=== PATIENT | female | born 1960 | race Caucasian/White ===

== ENCOUNTER 2018-12-11 10:01 | Inpatient (IN) ==
[2018-12-11 11:03] LABS: Basophils # (Auto) 0 K/mcL (0.0-0.3); Basophils % (Auto) 0.2 % (0.0-2.0); Eosinophils # (Auto) 0 K/mcL (0.0-0.7); Eosinophils % (Auto) 0.2 % (0.0-7.0); Granulocytes % (Auto) 83.8 % (38.0-78.0); Hematocrit 40.3 % (36.0-48.0); Hemoglobin 13.3 g/dL (12.0-15.0); Lymphocytes # (Auto) 1.6 K/mcL (1.5-4.8); Lymphocytes % (Auto) 11.7 % (15.5-49.0); Mean Cell Volume 83.8 fL (80.0-100.0); Mean Platelet Volume 8.3 fL (7.4-10.4); Monocytes # (Auto) 0.5 K/mcL (0.1-0.9); Monocytes % (Auto) 4.1 % (1.0-12.0); Platelet Count 146 K/mcL (140-440); RBC 4.81 M/mcL (4.00-5.20); Red Cell Distribution Width 17.6 % (11.5-14.5); WBC 13.3 K/mcL (4.5-11.0)
[2018-12-11 11:12] LABS: Prothrombin Time 13.4 sec (11.9-14.5)
[2018-12-11 11:23] LABS: ALT/SGPT 13 U/l (0-40); AST/SGOT 13 U/l (0-37); Albumin 3.8 gm/dL (3.2-5.2); Albumin/Globulin Ratio 0.8 (1.0-2.3); Alkaline Phosphatase 85 U/L (39-117); Blood Urea Nitrogen 22 mg/dl (6-20); C-Reactive Protein 28.7 mg/dl (0.0-0.8); Calcium 9.3 mg/dl (8.6-10.4); Carbon Dioxide 23 mmol/L (22-30); Chloride 88 mmol/L (96-108); Globulin 4.7 gm/dL (2.2-3.7); Glomerular Filtration Rate 49; Glucose 230 mg/dL (70-105); Sodium 129 mmol/L (133-145)
[2018-12-11] MEDS ORDERED: VANCOMYCIN 1,000 MG in 0.9 % SODIUM CHLORIDE 250 ML IV ONE (11:37)
--- NOTE | 2018-12-11 11:42 | Emergency Department Note ---
ED Note Addendum Note Addendum: I discussed this case with the mid-level provider heard the report from Dr. garcia today and examined the patient myself. I agree this patient should be admitted to the hospital for cellulitis.
[2018-12-11 11:47] LABS: Erythrocyte Sedimentation Rate 99 mm/hr (0-20)
--- NOTE | 2018-12-11 11:58 | Emergency Department Note ---
Skin/Abscess/FB HPI - General Chief complaint: Skin/Abscess/Foreign Body Stated complaint: RLE Cellulitis, Right Great Toe Pain Time Seen by Provider: 12/11/18 10:07 Source: patient Mode of arrival: wheelchair Limitations: no limitations - History of Present Illness HPI Narrative: 58-year-old female presents for recheck of cellulitis to the right lower extremity. She was seen here about 48 hours ago. She had an infected callus on her foot, she was started on Augmentin and a wound care referral was done. She saw wound care this morning and was worse. Dr. Singh wanted her sent back over to the ER for further evaluation. Patient reports fever a couple of days ago but none recently. She did have one episode of vomiting yesterday. Positive decreased appetite as she has not been eating or drinking much at all. States the redness and swelling to her right foot and lower leg seems to be getting worse, not better. States she has been taking her antibiotics as prescribed. Associated symptoms: Reports: fever, nausea, vomiting Treatments prior to arrival: antibiotic - Related Data Home Medications Medication Instructions Recorded Confirmed Hydrochlorothiazide 25 mg QAM 12/09/18 12/11/18 Insulin Glargine, Human [Lantus] 35 units SC BID 12/09/18 12/11/18 LORazepam [Ativan] 1 mg PO Q6HP PRN 12/09/18 12/11/18 Lisinopril [Zestril] 10 mg PO DAILY 12/09/18 12/11/18 Lovastatin 40 mg PO DAILY 12/09/18 12/11/18 Naproxen [Naprosyn] 250 mg PO PRN PRN 12/09/18 12/11/18 Omeprazole [PriLOSEC] 20 mg PO DAILY 12/09/18 12/11/18 glipiZIDE [Glucotrol] 10 mg PO BID 12/09/18 12/11/18 metFORMIN HCL [Metformin HCl] 1,000 mg PO BID 12/09/18 12/11/18 Aspirin [Man Chewable Aspirin] 81 mg PO DAILY 12/11/18 12/11/18 Previous Rx's Medication Instructions Recorded Amoxicillin/Potassium Clav 875 mg PO Q12H 10 Days #20 tab 12/09/18 [Augmentin] Allergies Allergy/AdvReac Type Severity Reaction Status Date / Time clindamycin Allergy Mild Hives Verified 12/11/18 10:03 Review of Systems All systems ED: reviewed and negative except as stated. 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 Absent: conjunctival injection ENT: mucous membranes moist Chest: Present: symmetric chest wall rise Respiratory: Present: normal lung sounds bilaterally, other (Diminished in the bases bilaterally). Absent: respiratory distress, rales/crackles, accessory muscle use Cardiovascular: Present: regular rate, normal heart sounds Extremities: Absent: normal inspection (Right lower extremity from the knee down throughout the foot and ankle with significant edema, redness, and warmth. No drainage or induration. Worse is around her foot although it has greatly spread up the lower leg, was outlined by wound care) Psychiatric: Present: normal affect, normal mood Skin: Present: warm, dry Course Course Narrative: Patient has failed outpatient antibiotic therapy. At 1155 I did speak with the hospitalist, Dr. Alexis who agrees to accept this patient. pt also seen by ER supervising physician Dr. Ray Vital Signs Temperature 98.1 F 12/11/18 10:03 Pulse Rate 62 12/11/18 10:03 Respiratory Rate 20 12/11/18 10:03 Blood Pressure 130/76 12/11/18 10:03 Pulse Oximetry (%) 95 12/11/18 10:03 Temperature 98.1 F 12/11/18 10:03 Pulse Rate 62 12/11/18 10:03 Respiratory Rate 20 12/11/18 10:03 Blood Pressure 110/62 12/11/18 11:51 Pulse Oximetry (%) 98 12/11/18 11:51 Skin/Abscess/Foreign Body - Lab Data Lab results reviewed: Yes I reviewed the patient's lab results. Result diagrams: 12/11/18 10:19 12/11/18 10:19 Lab Results 12/11/18 12/11/18 12/11/18 Range/Units 10: 10:19 10:19 WBC 13.3 H (4.5-11.0) K/mcL RBC 4.81 (4.00-5.20) M/mcL Hgb 13.3 (12.0-15.0) g/dL Hct 40.3 (36.0-48.0) % MCV 83.8 (80.0-100.0) fL MCH 27.6 (26.0-34.0) pg MCHC 33.0 (31.0-36.0) g/dL RDW 17.6 H (11.5-14.5) % Plt Count 146 (140-440) K/mcL MPV 8.3 (7.4-10.4) fL Gran % 83.8 H (38.0-78.0) % Lymph % (Auto) 11.7 L (15.5-49.0) % [place] % (Auto) 4.1 (1.0-12.0) % Eos % (Auto) 0.2 (0.0-7.0) % Baso % (Auto) 0.2 (0.0-2.0) % Gran # 11.1 H (1.8-8.0) K/mcL Lymph # (Auto) 1.6 (1.5-4.8) K/mcL [place] # (Auto) 0.5 (0.1-0.9) K/mcL Eos # (Auto) 0 (0.0-0.7) K/mcL Baso # (Auto) 0 (0.0-0.3) K/mcL ESR 99 H (0-20) mm/hr PT 13.4 (11.9-14.5) sec INR 1.0 (0.9-1.1) VBG Lactic Acid (0.5-2.0) mmol/L Sodium 129 L (133-145) mmol/L Potassium 4.0 (3.3-5.1) mmol/L Chloride 88 L (96-108) mmol/L Carbon Dioxide 23 (22-30) mmol/L Anion Gap 18.0 H (8-16) BUN 22 H (6-20) mg/dl Creatinine 1.2 H (0.6-1.1) mg/dl GFR Calculation 49 Glucose 230 H (70-105) mg/dL Calcium 9.3 (8.6-10.4) mg/dl Total Bilirubin 1.0 (0.0-1.0) mg/dL AST 13 (0-37) U/l ALT 13 (0-40) U/l Alkaline Phosphatase 85 (39-117) U/L C-Reactive Protein 28.7 H (0.0-0.8) mg/dl Total Protein 8.5 H (5.9-8.4) gm/dL Albumin 3.8 (3.2-5.2) gm/dL Globulin 4.7 H (2.2-3.7) gm/dL Albumin/Globulin Ratio 0.8 L (1.0-2.3) Procalcitonin (<0.10) ng/mL 12/11/18 12/11/18 Range/Units 10:19 10:19 WBC (4.5-11.0) K/mcL RBC (4.00-5.20) M/mcL Hgb (12.0-15.0) g/dL Hct (36.0-48.0) % MCV (80.0-100.0) fL MCH (26.0-34.0) pg MCHC (31.0-36.0) g/dL RDW (11.5-14.5) % Plt Count (140-440) K/mcL MPV (7.4-10.4) fL Gran % (38.0-78.0) % Lymph % (Auto) (15.5-49.0) % [place] % (Auto) (1.0-12.0) % Eos % (Auto) (0.0-7.0) % Baso % (Auto) (0.0-2.0) % Gran # (1.8-8.0) K/mcL Lymph # (Auto) (1.5-4.8) K/mcL [place] # (Auto) (0.1-0.9) K/mcL Eos # (Auto) (0.0-0.7) K/mcL Baso # (Auto) (0.0-0.3) K/mcL ESR (0-20) mm/hr PT (11.9-14.5) sec INR (0.9-1.1) VBG Lactic Acid 1.7 (0.5-2.0) mmol/L Sodium (133-145) mmol/L Potassium (3.3-5.1) mmol/L Chloride (96-108) mmol/L Carbon Dioxide (22-30) mmol/L Anion Gap (8-16) BUN (6-20) mg/dl Creatinine (0.6-1.1) mg/dl GFR Calculation Glucose (70-105) mg/dL Calcium (8.6-10.4) mg/dl Total Bilirubin (0.0-1.0) mg/dL AST (0-37) U/l ALT (0-40) U/l Alkaline Phosphatase (39-117) U/L C-Reactive Protein (0.0-0.8) mg/dl Total Protein (5.9-8.4) gm/dL Albumin (3.2-5.2) gm/dL Globulin (2.2-3.7) gm/dL Albumin/Globulin Ratio (1.0-2.3) Procalcitonin 3.01 (<0.10) ng/mL Disposition Pt seen by INVESTMENT SALES ASSISTANT/PA only: No Clinical Impression: Cellulitis, Diabetes mellitus, Failure of outpatient treatment Disposition: Xfer As Inpt ([facility]) Condition: Fair Referrals: No,PCP [Primary Care Provider] - Time of Disposition: 12:00
[2018-12-11] MEDS ORDERED: HYDROcodone/APAP 5/325MG TABLET PO PRN (12:19)
[2018-12-11] MEDS ORDERED: ONDANSETRON 4 MG/2 ML VIAL IV PRN ×2 (12:19→13:31)
[2018-12-11] MEDS ORDERED: ALBUTEROL SULFATE 2.5 MG/3 ML NEBULIZER NEB PRN ×2 (12:19→13:31)
--- NOTE | 2018-12-11 12:26 | Internal Med History&Physical ---
Medical - H&P: [facility] Patient information: Note initiated : 12/11/18 at 12:24 pm Service Date, if different from initiated Date: [] Patient: Joy Diaz a 58 y/o F admitted on for RLE Cellulitis, Right Great Toe Pain. Chief Complaint: [] History of present illness: Ms. Diaz is a 58 year old F Who recently moved here from [place] to live with her daughter. Is a history of diabetes hypertension anxiety GERD, stage IV endometrial cancers status post chemoradiation. She has had an ulcer on the inside of her great toe on the right in the past about 6 years ago. She did notice that she developed an ulcer again on that medial aspect of the right great toe about 4 days ago. It was bleeding at that time. Becoming red swollen and tender. She went to the ED several days ago and was started on Augmentin. She saw Dr. garcia in the wound clinic today and is found that her redness and swelling and tenderness had increased. Thus, she was sent into the ED. In the ED she had a white blood cell count of 13. BUN and creatinine were mildly elevated, glucose was elevated procalcitonin CRP and ESR elevated. Blood pressure and other vital signs are stable. Patient failed outpatient therapy with antibiotics and thus admission requested. She reports occasional headache and chills she states she had shaking chills few days ago. Chest pain shortness of breath or GI complaints. Review of Systems: denies fever//nausea/vomiting/chest or abdominal pain/cough/dyspnea/diarrhea. Otherwise see above. Medical - H&P: PMH Medical history: Past medical history: Diabetes with neuropathy Hypertension hyperlipidemia Anxiety GERD Stage IV endometrial cancer status post chemoradiation Past surgical history: Total abdominal hysterectomy with salpingo-oophorectomy Cholecystectomy Family history: Mother dementia Father had melanoma Social history: Patient smokes half pack sugars per day denies alcohol use The daughter recently moved from [place] Medical - H&P: Meds Home Medications Medication Instructions Recorded Confirmed Type Amoxicillin/Potassium Clav 875 mg PO Q12H 10 Days #20 tab 12/09/18 12/11/18 Rx [Augmentin] Hydrochlorothiazide 25 mg QAM 12/09/18 12/11/18 History Insulin Glargine, Human [Lantus] 35 units SC BID 12/09/18 12/11/18 History LORazepam [Ativan] 1 mg PO Q6HP PRN 12/09/18 12/11/18 History Lisinopril [Zestril] 10 mg PO DAILY 12/09/18 12/11/18 History Lovastatin 40 mg PO DAILY 12/09/18 12/11/18 History Naproxen [Naprosyn] 250 mg PO PRN PRN 12/09/18 12/11/18 History Omeprazole [PriLOSEC] 20 mg PO DAILY 12/09/18 12/11/18 History glipiZIDE [Glucotrol] 10 mg PO BID 12/09/18 12/11/18 History metFORMIN HCL [Metformin HCl] 1,000 mg PO BID 12/09/18 12/11/18 History Aspirin [Man Chewable Aspirin] 81 mg PO DAILY 12/11/18 12/11/18 History Allergies Allergy/AdvReac Type Severity Reaction Status Date / Time clindamycin Allergy Mild Hives Verified 12/11/18 10:03 Medical - H&P: Exam - Constitutional Vitals: Temp Pulse Resp BP Pulse Ox 98.1 F 62 20 110/62 98 12/11/18 10:03 12/11/18 10:03 12/11/18 10:03 12/11/18 11:51 12/11/18 11:51 Exam: General: Alert, Awake, No acute Distress, obese Eyes/N/T: EOMI, PEERL, DMM Head/Neck: neck supple, normocephalic atraumatic CV: RRR, 2/6 SM Pulm: Clear b/l, no wheezing/rhonchi/rales Abd: soft, nontender, +BS x4 Ext: no clubbing/cyanosis. Right great toe with small ulcer medial aspect. She has swelling erythema and tenderness from the foot to below the knee. Neuro: Alert, no focal deficits, moves all extremities, CN 2-12 grossly intact, sensation is decreased lower extremities chronic from neuropathy Skin: warm/dry Medical - H&P: Reslt - Labs CBC & Chem 7: 12/11/18 10:19 12/11/18 10:19 Labs: Short CBC 12/11/18 Range/Units 10:19 WBC 13.3 H (4.5-11.0) K/mcL Hgb 13.3 (12.0-15.0) g/dL Hct 40.3 (36.0-48.0) % Plt Count 146 (140-440) K/mcL BMP 12/11/18 10:19 Sodium 129 L Potassium 4.0 Chloride 88 L Carbon Dioxide 23 BUN 22 H Creatinine 1.2 H Glucose 230 H Calcium 9.3 Liver Function 12/11/18 Range/Units 10:19 Total Bilirubin 1.0 (0.0-1.0) mg/dL AST 13 (0-37) U/l ALT 13 (0-40) U/l Alkaline Phosphatase 85 (39-117) U/L Albumin 3.8 (3.2-5.2) gm/dL Medical - H&P: A/P - Narrative A/P Narrative: A: *Right great toe ulcer with cellulitis extending up into the chase: *Diabetes with neuropathy: Uncontrolled *LORE: *Volume depletion: *Hyponatremia: 2/2 above *Obesity: *HTN/HLD: *GERD: *History of endometrial cancer stage IV status post chemoradiation: * P: -IVF -Vanc/Zosyn -trend PCT/ESR -Dr Gil following -BC pending, WC if able -Check A1c - -Continue home basal insulin and SSI -ppx: Open ox
[2018-12-11] MEDS ORDERED: PIPERACILLIN SODIUM/TAZOBACTAM 3.375 GM in DEXTROSE 5% IN WATER 50 ML IV SCH (13:00)
[2018-12-11] MEDS ORDERED: LABETALOL 5 MG/ML ML IV PRN (13:31)
[2018-12-11] MEDS ORDERED: 0.9 % SODIUM CHLORIDE 1,000 ML IV SCH (13:31)
[2018-12-11 13:35] LABS: Hemoglobin A1C 8.1 % HGB (4.0-6.0)
--- NOTE | 2018-12-11 13:43 | Ultrasound Report ---
CLINICAL INFORMATION: Cellulitis with leg pain COMPARISON: None. FINDINGS: The entire deep venous system including the common femoral, superficial femoral, and popliteal are easily compressible and show normal venous blood flow on color and spectral Doppler. The paired calf veins are not visualized due to patient body habitus and edema No evidence of thrombus IMPRESSION: No evidence of deep vein thrombosis in the common femoral, superficial femoral and popliteal veins. Calf veins not visualized. Interpreted and Authenticated by: Ervin Jordan 12/11/18
[2018-12-11] MEDS: PIPERACILLIN SODIUM/TAZOBACTAM 3.375 GM in DEXTROSE 5% IN WATER 50 ML IV SCH ×3 (14:19→23:42)
[2018-12-11] MEDS: 0.9 % SODIUM CHLORIDE 10 ML SYRINGE IV SCH ×2 (14:20→20:48)
[2018-12-11] MEDS: HYDROcodone/APAP 5/325MG TABLET PO PRN ×3 (14:57→23:43)
[2018-12-11] MEDS: 0.9 % SODIUM CHLORIDE 1,000 ML IV SCH (16:11)
[2018-12-11] MEDS ORDERED: FLUTICASONE HFA 110MCG INHALER INH PRN (16:32)
[2018-12-11] MEDS: INSULIN LISPRO 1 UNIT/0.01 ML UNIT SQ SCH ×2 (17:23→20:19)
--- NOTE | 2018-12-11 18:34 | General Surgery Consult Note ---
History of Present Illness Patient information: Note initiated : 12/11/18 at 6:31 pm Service Date, if different from initiated Date: [] Patient: Joy Diaz 58 y/o F admitted on 12/11/18 for RLE Cellulitis, Right Great Toe Pain. Chief Complaint: [] Consult date: 12/11/18 Requesting physician: Frank Alexis (Wound Care ? Cellulitis Right LE.) History of present illness: This patient was seen in wound care today and referred to ER for further work up and treatment. She failed out patient treatment for an infected callus of RIGHT great toe. Did NOT respond to oral antibiotic and developed pain, swelling, tenderness and progressive erythema cellulitis of RLE which spread up to upper inner thigh. 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 Treated with chemotherapy and radiation in past. Details NOT available . She smokes over a pack of cigarettes a day. Medications and Allergies Home Medications Medication Instructions Recorded Confirmed Type Amoxicillin/Potassium Clav 875 mg PO Q12H 10 Days #20 tab 12/09/18 12/11/18 Rx [Augmentin] Hydrochlorothiazide 25 mg QAM 12/09/18 12/11/18 History Insulin Glargine, Human [Lantus] 35 units SC BID 12/09/18 12/11/18 History LORazepam [Ativan] 1 mg PO HSP PRN 12/09/18 12/11/18 History Lisinopril [Zestril] 10 mg PO DAILY 12/09/18 12/11/18 History Lovastatin 40 mg PO HS 12/09/18 12/11/18 History Naproxen [Naprosyn] 500 mg PO BIDP PRN 12/09/18 12/11/18 History Omeprazole [PriLOSEC] 20 mg PO DAILY 12/09/18 12/11/18 History glipiZIDE [Glucotrol] 10 mg PO BID 12/09/18 12/11/18 History metFORMIN HCL [Metformin HCl] 1,000 mg PO BID 12/09/18 12/11/18 History Ammonium Lactate 1 applic TOPICAL DAILY 12/11/18 12/11/18 History Anastrozole [Arimidex] 1 mg PO DAILY 12/11/18 12/11/18 History Aspirin [Man Chewable Aspirin] 81 mg PO DAILY 12/11/18 12/11/18 History Fish Oil 1 tab PO BID 12/11/18 12/11/18 History Fluticasone Hfa 110Mcg [Flovent 1 puff INH BIDP PRN 12/11/18 12/11/18 History Hfa 110Mcg] Ranitidine HCl [Acid Teaching [employer]ists] 1 tab PO HS 12/11/18 12/11/18 History Allergies Allergy/AdvReac Type Severity Reaction Status Date / Time clindamycin Allergy Mild Hives Verified 12/11/18 10:03 Exam Temp Pulse Resp BP Pulse Ox 98.1 F 81 18 99/53 95 12/11/18 16:00 12/11/18 16:00 12/11/18 16:00 12/11/18 16:00 12/11/18 16:00 - General physical appearance well developed, well nourished, no distress, moderate pain, obese - Eyes PERRL, normal ocular movement - ENT normal pinna, normal nares, normal mucosa, no congestion - Head Head exam IM: Present: atraumatic, normocephalic - Neck no masses, no venous distension - Cardiovascular Cardiovascular exam IM: Present: normal rate and rhythm - Respiratory normal expansion, normal respiratory effort dullness: bilateral (Decreased air entry at bases) - Abdomen Abdomen: Present: soft, non tender, bowel sounds - Integumentary Present: other (EDEMA, ERYTHEMA, TENDERNESS from great toe to upper inner thigh. DP / PT palpable.) - Neurologic Present: normal coordination, other (NO focal neurological deficits.) - Musculoskeletal Present: normal gait - Psychiatric Present: oriented to time, oriented to person, oriented to place, speech is normal Results - Labs 12/12/18 04:12 12/12/18 14:47 Abnormal lab results 12/11/18 12/11/18 12/11/18 Range/Units 10:19 10: 10: WBC 13.3 H (4.5-11.0) K/mcL RDW 17.6 H (11.5-14.5) % Gran % 83.8 H (38.0-78.0) % Lymph % (Auto) 11.7 L (15.5-49.0) % Gran # 11.1 H (1.8-8.0) K/mcL ESR 99 H (0-20) mm/hr Sodium 129 L (133-145) mmol/L Chloride 88 L (96-108) mmol/L Anion Gap 18.0 H (8-16) BUN 22 H (6-20) mg/dl Creatinine 1.2 H (0.6-1.1) mg/dl Glucose 230 H (70-105) mg/dL Hemoglobin A1c 8.1 H (4.0-6.0) % HGB C-Reactive Protein 28.7 H (0.0-0.8) mg/dl Total Protein 8.5 H (5.9-8.4) gm/dL Globulin 4.7 H (2.2-3.7) gm/dL Albumin/Globulin Ratio 0.8 L (1.0-2.3) Diabetes panel 12/11/18 12/11/18 Range/Units 10: 10:19 Sodium 129 L (133-145) mmol/L Potassium 4.0 (3.3-5.1) mmol/L Chloride 88 L (96-108) mmol/L Carbon Dioxide 23 (22-30) mmol/L BUN 22 H (6-20) mg/dl Creatinine 1.2 H (0.6-1.1) mg/dl Glucose 230 H (70-105) mg/dL Hemoglobin A1c 8.1 H (4.0-6.0) % HGB Calcium 9.3 (8.6-10.4) mg/dl AST 13 (0-37) U/l ALT 13 (0-40) U/l Alkaline Phosphatase 85 (39-117) U/L Total Protein 8.5 H (5.9-8.4) gm/dL Albumin 3.8 (3.2-5.2) gm/dL Calcium panel 12/11/18 Range/Units 10:19 Calcium 9.3 (8.6-10.4) mg/dl Albumin 3.8 (3.2-5.2) gm/dL Pituitary panel 12/11/18 Range/Units 10:19 Sodium 129 L (133-145) mmol/L Potassium 4.0 (3.3-5.1) mmol/L Chloride 88 L (96-108) mmol/L Carbon Dioxide 23 (22-30) mmol/L BUN 22 H (6-20) mg/dl Creatinine 1.2 H (0.6-1.1) mg/dl Glucose 230 H (70-105) mg/dL Calcium 9.3 (8.6-10.4) mg/dl Adrenal panel 12/11/18 Range/Units 10:19 Sodium 129 L (133-145) mmol/L Potassium 4.0 (3.3-5.1) mmol/L Chloride 88 L (96-108) mmol/L Carbon Dioxide 23 (22-30) mmol/L BUN 22 H (6-20) mg/dl Creatinine 1.2 H (0.6-1.1) mg/dl Glucose 230 H (70-105) mg/dL Calcium 9.3 (8.6-10.4) mg/dl Total Bilirubin 1.0 (0.0-1.0) mg/dL AST 13 (0-37) U/l ALT 13 (0-40) U/l Alkaline Phosphatase 85 (39-117) U/L Total Protein 8.5 H (5.9-8.4) gm/dL Albumin 3.8 (3.2-5.2) gm/dL All other labs normal. Assessment and Plan (1) Cellulitis Status: Acute Priority: Medium Comment: Inflammatory changes extend to upper medial thigh area. Patient started on IV antibiotics. Qualifiers: Site of cellulitis: extremity Site of cellulitis of extremity: toe Late rality: right Qualified Code(s): L03.031 - Cellulitis of right toe (2) Failure of outpatient treatment Status: Acute Priority: Medium (3) Diabetic foot ulcer Status: Chronic Priority: Medium
[2018-12-11] MEDS: INSULIN GLARGINE, HUMAN 1 UNIT/0.01 ML SQ SCH (20:18)
[2018-12-11] MEDS: FAMOTIDINE 20 MG TABLET PO SCH (20:19)
[2018-12-11] MEDS: SIMVASTATIN 20 MG TABLET PO SCH (20:19)
[2018-12-12] MEDS: 0.9 % SODIUM CHLORIDE 1,000 ML IV SCH (02:46)
[2018-12-12 05:17] LABS: Basophils # (Auto) 0 K/mcL (0.0-0.3); Basophils % (Auto) 0.2 % (0.0-2.0); Eosinophils # (Auto) 0.1 K/mcL (0.0-0.7); Eosinophils % (Auto) 0.8 % (0.0-7.0); Granulocytes % (Auto) 80.4 % (38.0-78.0); Hematocrit 32.7 % (36.0-48.0); Hemoglobin 10.9 g/dL (12.0-15.0); Lymphocytes # (Auto) 1.4 K/mcL (1.5-4.8); Lymphocytes % (Auto) 12.9 % (15.5-49.0); Mean Cell Volume 83.9 fL (80.0-100.0); Mean Corpuscular HGB Conc 33.5 g/dL (31.0-36.0); Mean Platelet Volume 8.1 fL (7.4-10.4); Monocytes # (Auto) 0.6 K/mcL (0.1-0.9); Monocytes % (Auto) 5.7 % (1.0-12.0); Platelet Count 132 K/mcL (140-440); Red Cell Distribution Width 17.4 % (11.5-14.5); WBC 10.7 K/mcL (4.5-11.0)
[2018-12-12 05:39] LABS: ALT/SGPT 12 U/l (0-40); AST/SGOT 11 U/l (0-37); Albumin 2.7 gm/dL (3.2-5.2); Albumin/Globulin Ratio 0.7 (1.0-2.3); Alkaline Phosphatase 59 U/L (39-117); Bilirubin,Direct 0.3 mg/dL (0.0-0.3); Bilirubin,Total 0.7 mg/dL (0.0-1.0); Blood Urea Nitrogen 21 mg/dl (6-20); C-Reactive Protein 16.4 mg/dl (0.0-0.8); Calcium 8.1 mg/dl (8.6-10.4); Carbon Dioxide 20 mmol/L (22-30); Chloride 95 mmol/L (96-108); Globulin 3.7 gm/dL (2.2-3.7); Glomerular Filtration Rate 70; Glucose 156 mg/dL (70-105); Lactate Dehydrogenase 154 U/L (94-250); Magnesium 1.3 mg/dL (1.6-2.5); Phosphorous 3.3 mg/dL (2.7-4.5); Potassium 3.3 mmol/L (3.3-5.1); Sodium 127 mmol/L (133-145); Triglycerides 118 mg/dl (<150)
[2018-12-12] MEDS: 0.9 % SODIUM CHLORIDE 10 ML SYRINGE IV SCH ×2 (05:44→21:31)
[2018-12-12] MEDS: PIPERACILLIN SODIUM/TAZOBACTAM 3.375 GM in DEXTROSE 5% IN WATER 50 ML IV SCH ×2 (05:44→11:27)
[2018-12-12 06:37] LABS: Erythrocyte Sedimentation Rate 102 mm/hr (0-20)
[2018-12-12] MEDS ORDERED: MAGNESIUM SULFATE 2 GM/50 ML BAG IV ONE (07:10)
--- NOTE | 2018-12-12 07:11 | Internal Med Progress Note ---
Medical - PN: Subj Patient information: Note initiated : 12/12/18 at 7:06 am Service Date, if different from initiated Date: [] Patient: Joy Diaz 58 y/o F admitted on 12/11/18 for RLE Cellulitis, Right Great Toe Pain. Chief Complaint: [] Interval history: Ms. Diaz is a 58 year old F Who recently moved here from [place] to live with her daughter. Is a history of diabetes hypertension anxiety GERD, stage IV endometrial cancers status post chemoradiation. She has had an ulcer on the inside of her great toe on the right in the past about 6 years ago. She did notice that she developed an ulcer again on that medial aspect of the right great toe about 4 days ago. It was bleeding at that time. Becoming red swollen and tender. She went to the ED several days ago and was started on Augmentin. She saw Dr. garcia in the wound clinic today and is found that her redness and swelling and tenderness had increased. Thus, she was sent into the ED. In the ED she had a white blood cell count of 13. BUN and creatinine were mildly elevated, glucose was elevated procalcitonin CRP and ESR elevated. Blood pressure and other vital signs are stable. Patient failed outpatient therapy with antibiotics and thus admission requested. She reports occasional headache and chills she states she had shaking chills few days ago. Chest pain shortness of breath or GI complaints. 12/12 No overnight events. Slept okay. Leg does not feel quite as tender. No fevers or chills. Review of Systems: denies headache/fever/chills/nausea/vomiting/chest or abdominal pain/cough/dyspnea/diarrhea. Otherwise see above. - Constitutional Vitals: Vital Signs Temp Pulse Resp BP Pulse Ox 97.4 F 78 16 109/58 95 12/12/18 03:42 12/12/18 03:42 12/12/18 03:42 12/12/18 03:42 12/12/18 03:42 Period Temp Pulse Resp BP Sys/Wray Pulse Ox Last 24 Hr 97.4 F-98.4 F 62-90 16-20 92-138/42-76 95-98 Intake and Output 12/11/18 12/12/18 12/12/18 21:59 05:59 13:59 Intake Total 100 1600 Output Total 850 Balance 100 750 Weight 129.637 kg Intake & Output: Intake & Output 12/11/18 12/12/18 12/12/18 21:59 05:59 13:59 Intake Total 100 1600 Output Total 850 Balance 100 750 Weight 129.637 kg Intake: IV 100 1050 Sodium Chloride 0.9% 1,000 ml @ 1000 100 mls/hr IV .Q10H [facility] Rx#: [id number] Zosyn 3.375 gm In Dextrose 5% 100 50 in Water 50 ml @ 100 mls/hr IV Q6H [facility]UBEN Rx#:[id number] Oral 550 Output: Void Amount 850 Other: Meal Lunch HS Snack Percent of Meal Consumed 10 100% Feeding Ability Independent Urine Appearance Clear Urine Color Light Ketty # Voids 1 Exam: General: Alert, Awake, No acute Distress, obese Eyes/N/T: EOMI, Head/Neck: neck supple, CV: RRR, 2/6 SM Pulm: Clear b/l, no wheezing/rhonchi/rales Abd: soft, nontender, +BS x4 Ext: no clubbing/cyanosis. Right great toe with small ulcer medial aspect. She has swelling/erythema/tenderness from the foot to below the knee -improving. Neuro: Alert, moves all extremities, sensation is decreased lower extremities chronic from neuropathy Skin: warm/dry Medical - PN: Obj Da - Labs CBC & Chem 7: 12/12/18 04:12 12/12/18 04:12 Labs: Abnormal Lab Results 12/12/18 12/12/18 12/11/18 04:12 04:12 10:19 WBC RBC 3.90 L Hgb 10.9 L Hct 32.7 L RDW 17.4 H Plt Count 132 L Gran % 80.4 H Lymph % (Auto) 12.9 L Gran # 8.6 H Lymph # (Auto) 1.4 L ESR 102 H Sodium 127 L Chloride 95 L Carbon Dioxide 20 L Anion Gap BUN 21 H Creatinine Glucose 156 H Hemoglobin A1c 8.1 H Calcium 8.1 L Magnesium 1.3 L C-Reactive Protein 16.4 H Total Protein Albumin 2.7 L Globulin Albumin/Globulin Ratio 0.7 L 12/11/18 12/11/18 10:19 10:19 WBC 13.3 H RBC Hgb Hct RDW 17.6 H Plt Count Gran % 83.8 H Lymph % (Auto) 11.7 L Gran # 11.1 H Lymph # (Auto) ESR 99 H Sodium 129 L Chloride 88 L Carbon Dioxide Anion Gap 18.0 H BUN 22 H Creatinine 1.2 H Glucose 230 H Hemoglobin A1c Calcium Magnesium C-Reactive Protein 28.7 H Total Protein 8.5 H Albumin Globulin 4.7 H Albumin/Globulin Ratio 0.8 L Meds: Medications Hydrocodone Bitart/Acetaminophen ([place] 5/325mg) 1 tab PO Q4HP PRN PRN Reason: PAIN LEVEL 3-6 Last Admin: 12/11/18 23:43 Dose: 1 tab Documented by: Albuterol Sulfate (Ventolin) 2.5 mg NEB Q2HP PRN PRN Reason: Shortness Of Breath Aspirin (Aspirin) 81 mg PO DAILY [facility] Diagnostic Test (Pha) (Accu-Chek) 1 each FS ACHS [facility] Last Admin: 12/11/18 20:18 Dose: 1 each Documented by: Enoxaparin Sodium (Lovenox) 40 mg SQ DAILY [facility] Famotidine (Pepcid) 20 mg PO HS [facility] Last Admin: 12/11/18 20:19 Dose: 20 mg Documented by: Fluticasone Propionate (Flovent Hfa 110mcg) 1 puff INH BIDP PRN PRN Reason: Shortness Of Breath Piperacillin Sod/Tazobactam (Sod 3.375 gm/ Dextrose) 50 mls @ 100 mls/hr IV Q6H [facility]; Protocol Last Admin: 12/12/18 05:44 Dose: 100 mls/hr Documented by: Sodium Chloride (Sodium Chloride 0.9%) 1,000 mls @ 100 mls/hr IV .Q10H [facility] Stop: 12/12/18 09:30 Last Admin: 12/12/18 02:46 Dose: 100 mls/hr Documented by: Insulin Glargine (Lantus) 35 unit SQ BID [facility] Last Admin: 12/11/18 20:18 Dose: 35 unit Documented by: Insulin Human Lispro (Humalog) 0 unit SQ ACHS [facility]; Protocol Last Admin: 12/11/18 20:19 Dose: Not Given Documented by: Labetalol HCl (Trandate) 0 mg IV Q2HP PRN PRN Reason: Hypertension Lorazepam (Ativan) 1 mg PO Q6HP PRN PRN Reason: Anxiety Omeprazole (Prilosec) 20 mg PO QAMAC [facility] Ondansetron HCl (Zofran) 4 mg IV Q6HP PRN PRN Reason: Nausea And Vomiting Anastrozole [ (Arimidex] 1 Mg Tab) 1 dose PO DAILY [facility] Simvastatin (Zocor) 20 mg PO HS [facility] Last Admin: 12/11/18 20:19 Dose: 20 mg Documented by: Sodium Chloride (Saline Flush) 10 ml IV Q8 [facility] Last Admin: 12/12/18 05:44 Dose: Not Given Documented by: Medical - PN: A/P - Time Spent With Patient Total time spent is greater than 50% in coordination of care (as documented) at patient's floor/unit and/or counseling patient: - Narrative A/P Narrative: A: *Right great toe ulcer with cellulitis extending up into the chase: -leukocytosis resolved -PCT improving *Diabetes w/neuropathy: A1c 8.1 *LORE: improved *Volume depletion: improved *Hyponatremia/ma/2 above *Obesity: *HTN/HLD: *GERD: *h/o Endometrial CA stage IV s/p chemo-radiation: * P: -IVF finish -Vanc d/c, Zosyn -trend PCT/ESR -Dr Gil following -BC pending, WC if able - -urine studies -Continue home basal insulin and SSI -ppx: [employer] Medical - PN: Qual - VTE Deep Vein Thrombosis/Pulmonary Embolism Present on Admission: No
[2018-12-12] MEDS: OMEPRAZOLE 20 MG CAPSULE PO SCH (07:32)
[2018-12-12] MEDS: INSULIN LISPRO 1 UNIT/0.01 ML UNIT SQ SCH ×4 (07:42→21:30)
[2018-12-12] MEDS: ASPIRIN 81 MG TAB.CHEW PO SCH (08:47)
[2018-12-12] MEDS: ENOXAPARIN 40 MG/0.4 ML SYRINGE SQ SCH (08:47)
[2018-12-12] MEDS: INSULIN GLARGINE, HUMAN 1 UNIT/0.01 ML SQ SCH ×2 (08:48→21:31)
[2018-12-12 08:57] LABS: Sodium, Urine Random 30 mmol/L
[2018-12-12 09:04] LABS: Osmolality,Urine 305 mOsm/kg (80-1000)
[2018-12-12] MEDS ORDERED: 0.9 % SODIUM CHLORIDE 1,000 ML IV SCH (09:30)
[2018-12-12] MEDS: Anastrozole [Arimidex] 1 mg Tab PO SCH (11:27)
[2018-12-12] MEDS: HYDROcodone/APAP 5/325MG TABLET PO PRN ×3 (11:28→21:29)
[2018-12-12] MEDS ORDERED: VANCOMYCIN PER PHARMACY IV SCH (12:04)
[2018-12-12] MEDS ORDERED: VANCOMYCIN 1,000 MG in 0.9 % SODIUM CHLORIDE 250 ML IV ONE (13:00)
[2018-12-12] MEDS ORDERED: IOPAMIDOL 100 ML BOTTLE IV ONE (13:26)
[2018-12-12] MEDS: cefTRIAXone 2 GM in DEXTROSE 5% IN WATER 50 ML IV SCH (13:57)
[2018-12-12 15:54] LABS: Blood Urea Nitrogen 17 mg/dl (6-20); Calcium 8.4 mg/dl (8.6-10.4); Carbon Dioxide 19 mmol/L (22-30); Chloride 94 mmol/L (96-108); Glomerular Filtration Rate 61; Glucose 258 mg/dL (70-105); Potassium 3.2 mmol/L (3.3-5.1); Sodium 128 mmol/L (133-145)
[2018-12-12] MEDS: SODIUM CHLORIDE 1 GM TABLET PO SCH ×2 (17:02→21:29)
--- NOTE | 2018-12-12 19:33 | Cat Scan Report ---
CLINICAL INFORMATION: ?abscess/bone involvement - diffuse leg swelling COMPARISON: None. TECHNIQUE: 0.625 mm helical slices were obtained in the distal one third of the femur through the entire calf and ankle. Following reconstruction, 2.5 mm sagittal, coronal and axial reformatted images were processed and reviewed in bone and soft tissue window. FINDINGS: There is a large amount of edema or inflammation throughout the subcutaneous fat of the calf extending to the ankle and foot. There are no discrete fluid collections appreciated. Mild atrophy of the anterior and posterior [place] musculature by no evidence of myositis or fasciitis. No specific evidence for osteomyelitis. There is a 5 mm loose body in the medial ankle mortise which may have originated from a remote avulsion fracture off the adjacent medial talus. Foot images show severe hallux valgus and metatarsus abductus. IMPRESSION: Marked edema or, less likely, cellulitis throughout the calf, ankle and foot. There are no discrete fluid collections. No evidence of myositis, fasciitis or osteomyelitis. 5 mm loose body in medial ankle mortise likely remote avulsion fracture is seen in the adjacent talus. Moderate hallux valgus metatarsus adductus deformities Interpreted and Authenticated by: Ervin Jordan 12/12/18
[2018-12-12] MEDS: LORazepam 1 MG TABLET PO PRN (19:51)
--- NOTE | 2018-12-12 20:48 | General Surgery Progress Note ---
Subjective Patient reports: other (UNEVENTFUL PROGRESS. Cellulitis improving. ) Narrative: Note initiated : 12/12/18 at 8:46 pm Service Date, if different from initiated Date: [] Patient: Joy Diaz 58 y/o F admitted on 12/11/18 for RLE Cellulitis, Right Great Toe Pain. Chief Complaint: [] Objective Temp Pulse Resp BP Pulse Ox 96.4 F L 74 22 117/58 99 12/12/18 16:00 12/12/18 16:00 12/12/18 16:00 12/12/18 16:00 12/12/18 16:00 AVSS. No changes MALLORY L/E. Tenderness, Erythema DECEASING. Foot and Leg is warm. No drainage. Labs reviewed. - Additional Data Intake & Output - Last 24 hours: Intake & Output 12/10/18 12/11/18 12/12/18 12/13/18 05:59 05:59 05:59 05:59 Intake Total 1950 1000 Output Total 1550 2700 Balance 400 -1700 Weight 285 lb 12.8 oz 285 lb 12.8 oz - Labs 12/12/18 04:12 12/12/18 14:47 Diabetes panel 12/12/18 12/12/18 Range/Units 04:12 14:47 Sodium 127 L 128 L (133-145) mmol/L Potassium 3.3 3.2 L (3.3-5.1) mmol/L Chloride 95 L 94 L (96-108) mmol/L Carbon Dioxide 20 L 19 L (22-30) mmol/L BUN 21 H 17 (6-20) mg/dl Creatinine 0.9 1.0 (0.6-1.1) mg/dl Glucose 156 H 258 H (70-105) mg/dL Calcium 8.1 L 8.4 L (8.6-10.4) mg/dl AST 11 (0-37) U/l ALT 12 (0-40) U/l Alkaline Phosphatase 59 (39-117) U/L Total Protein 6.4 (5.9-8.4) gm/dL Albumin 2.7 L (3.2-5.2) gm/dL Triglycerides 118 (<150) mg/dl Calcium panel 12/12/18 12/12/18 Range/Units 04:12 14:47 Calcium 8.1 L 8.4 L (8.6-10.4) mg/dl Phosphorus 3.3 (2.7-4.5) mg/dL Albumin 2.7 L (3.2-5.2) gm/dL Pituitary panel 12/12/18 12/12/18 Range/Units 04:12 14:47 Sodium 127 L 128 L (133-145) mmol/L Potassium 3.3 3.2 L (3.3-5.1) mmol/L Chloride 95 L 94 L (96-108) mmol/L Carbon Dioxide 20 L 19 L (22-30) mmol/L BUN 21 H 17 (6-20) mg/dl Creatinine 0.9 1.0 (0.6-1.1) mg/dl Glucose 156 H 258 H (70-105) mg/dL Calcium 8.1 L 8.4 L (8.6-10.4) mg/dl Adrenal panel 12/12/18 12/12/18 Range/Units 04:12 14:47 Sodium 127 L 128 L (133-145) mmol/L Potassium 3.3 3.2 L (3.3-5.1) mmol/L Chloride 95 L 94 L (96-108) mmol/L Carbon Dioxide 20 L 19 L (22-30) mmol/L BUN 21 H 17 (6-20) mg/dl Creatinine 0.9 1.0 (0.6-1.1) mg/dl Glucose 156 H 258 H (70-105) mg/dL Calcium 8.1 L 8.4 L (8.6-10.4) mg/dl Total Bilirubin 0.7 (0.0-1.0) mg/dL AST 11 (0-37) U/l ALT 12 (0-40) U/l Alkaline Phosphatase 59 (39-117) U/L Total Protein 6.4 (5.9-8.4) gm/dL Albumin 2.7 L (3.2-5.2) gm/dL Assessment and Plan - Narrative A/P Narrative: Assessment: Patient seen with nursing staff. Responding to treatment. Plan: Continue current treatment. - Time Spent With Patient Total time spent is greater than 50% in coordination of care (as documented) at patient's floor/unit and/or counseling patient: 15 - 24 minutes
[2018-12-12] MEDS: SIMVASTATIN 20 MG TABLET PO SCH (21:29)
[2018-12-12] MEDS: FAMOTIDINE 20 MG TABLET PO SCH (21:29)
[2018-12-12] MEDS: valACYclovir 500 MG TABLET PO SCH (21:31)
[2018-12-12] MEDS: VANCOMYCIN 1,500 MG in 0.9 % SODIUM CHLORIDE 500 ML IV SCH (21:32)
--- NOTE | 2018-12-12 22:20 | Infectious Disease Consult ---
History of Present Illness Patient information: Note initiated : 12/12/18 at 9:56 pm Service Date, if different from initiated Date: [] Patient: Joy Diaz 58 y/o F admitted on 12/11/18 for RLE Cellulitis, Right Great Toe Pain. Chief Complaint: [] Consult date: 12/12/18 Requesting Physician: Frank Alexis Reason for Consult: Routine consult Chief complaint: right lower extreemitty cellulitis History of present illness: 58 year old lady with PMHx of: - DM2 with neuropathy - Right foot non healing ulcer - Stage 4 endometrial Ca, s/p chemoradiation: currenlt in remission Pt was admitted on 12/11/18 with c/o acute onset redness and painful swelling in right leg and foot, and subsequently progressed to inv inner right thigh. It all started with pain in her right first toe, and small drainage from that toe about 3-4 days prior to admission. Subseq it progressed to a painful swelling with redness of roght leg and foot. Pt endorses fever, chills, nausea. Denied any trauma, pet contact. She was initially seen in ED on 12/09, had a low grade fever 100F and prescribed Augmentin 875 bid x 10 days. She did not get better and was seen in wound care clinic on 12/11 from where she was referred to ED for concerns of worsening cellulitis. Of note, pt recently moved here from [place] to live with her daughter. In the ED on 12/11, pt had a temp of 98.1F, HR 62, RR 20, BP 130/76. WBC was 13.3, procalcitonin 3.01. Xray of foot was negative for osteomyelitis. Pt was started on IV Vanc and IV ZOsyn, IV Vanc was d/saleem as pt was found to have no MRSA nasal carriage. She had been afebrile during her stay, with normalization of WBC and downtrending of procalcitonin. Blood Cx and foot wound Cx sent at admission have been NGTD. Review of Systems All systems PM: reviewed and no additional remarkable complaints except as stated Past History Past family history: not pertinent to current presentation no Hx of similar complaints in family Past social history: lives with her daughter. Smoker, 1/2 PPD Medications and Allergies Home Medications Medication Instructions Recorded Confirmed Type Amoxicillin/Potassium Clav 875 mg PO Q12H 10 Days #20 tab 12/09/18 12/11/18 Rx [Augmentin] Hydrochlorothiazide 25 mg QAM 12/09/18 12/11/18 History Insulin Glargine, Human [Lantus] 35 units SC BID 12/09/18 12/11/18 History LORazepam [Ativan] 1 mg PO HSP PRN 12/09/18 12/11/18 History Lisinopril [Zestril] 10 mg PO DAILY 12/09/18 12/11/18 History Lovastatin 40 mg PO HS 12/09/18 12/11/18 History Naproxen [Naprosyn] 500 mg PO BIDP PRN 12/09/18 12/11/18 History Omeprazole [PriLOSEC] 20 mg PO DAILY 12/09/18 12/11/18 History glipiZIDE [Glucotrol] 10 mg PO BID 12/09/18 12/11/18 History metFORMIN HCL [Metformin HCl] 1,000 mg PO BID 12/09/18 12/11/18 History Ammonium Lactate 1 applic TOPICAL DAILY 12/11/18 12/11/18 History Anastrozole [Arimidex] 1 mg PO DAILY 12/11/18 12/11/18 History Aspirin [Man Chewable Aspirin] 81 mg PO DAILY 12/11/18 12/11/18 History Fish Oil 1 tab PO BID 12/11/18 12/11/18 History Fluticasone Hfa 110Mcg [Flovent 1 puff INH BIDP PRN 12/11/18 12/11/18 History Hfa 110Mcg] Ranitidine HCl [Acid [employer] Age [employer]] 1 tab PO HS 12/11/18 12/11/18 History Allergies Allergy/AdvReac Type Severity Reaction Status Date / Time clindamycin Allergy Mild Hives Verified 12/11/18 10:03 Physical Examination Vital signs: Temp Pulse Resp BP Pulse Ox 36.5 C 70 20 104/51 91 12/12/18 20:00 12/12/18 20:00 12/12/18 20:00 12/12/18 20:00 12/12/18 20:00 General appearance: no acute distress Eyes pulmonary: nonicteric ENT: oropharynx moist, other (has some shallow oral ulcers) Effort: normal Integumentary: erythema, cellulitis Extremities: edema, other (has redness and swelling extendng from prox right foot until upper inner thigh with some areas in leg and outer thigh not involved. Tender, warm. No blisters, ulcers, no drainage.) Results - Laboratory Findings CBC and BMP: 12/13/18 04:07 12/13/18 04:07 PT/INR, D-dimer PT 13.4 sec (11.9-14.5) 12/11/18 10:19 INR 1.0 (0.9-1.1) 12/11/18 10:19 Abnormal lab findings: Abnormal Labs 12/11/18 12/11/18 12/11/18 10:19 10:19 10:19 WBC 13.3 H RBC Hgb Hct RDW 17.6 H Plt Count Gran % 83.8 H Lymph % (Auto) 11.7 L Gran # 11.1 H Lymph # (Auto) ESR 99 H Sodium 129 L Potassium Chloride 88 L Carbon Dioxide Anion Gap 18.0 H BUN 22 H Creatinine 1.2 H Glucose 230 H Hemoglobin A1c 8.1 H Calcium Magnesium C-Reactive Protein 28.7 H Total Protein 8.5 H Albumin Globulin 4.7 H Albumin/Globulin Ratio 0.8 L 12/12/18 12/12/18 12/12/18 04:12 04:12 14:47 WBC RBC 3.90 L Hgb 10.9 L Hct 32.7 L RDW 17.4 H Plt Count 132 L Gran % 80.4 H Lymph % (Auto) 12.9 L Gran # 8.6 H Lymph # (Auto) 1.4 L ESR 102 H Sodium 127 L 128 L Potassium 3.2 L Chloride 95 L 94 L Carbon Dioxide 20 L 19 L Anion Gap BUN 21 H Creatinine Glucose 156 H 258 H Hemoglobin A1c Calcium 8.1 L 8.4 L Magnesium 1.3 L C-Reactive Protein 16.4 H Total Protein Albumin 2.7 L Globulin Albumin/Globulin Ratio 0.7 L Microbiology: Microbiology 12/11/18 14:30 Foot - Right Gram Stain - Final 12/11/18 14:30 Foot - Right Wound Culture - Preliminary 12/11/18 10:39 Blood Blood Culture - Preliminary 12/11/18 10:19 Blood Blood Culture - Preliminary 12/11/18 14:30 Nose MRSA (PCR) - Final 12/11/18 14:30 Nasopharynx MRSA Screen - Final Assessment and Plan - Narrative A/P Narrative: A: 1. Complicated skin and soft tissue infection of right lower extremity (inv foot, leg, thigh) - mild clinical improvement - gmost common etiology for such infections is gram-positives. In absence of cultures and a strong clinical response so far; will expand coverage with addition of Vanc - no sepsis: QSOFA score 0 - CT right LE s/o Marked edema or, less likely, cellulitis throughout the calf, ankle and foot. There are no discrete fluid collections. No evidence of myositis, fasciitis or osteomyelitis. 5 mm loose body in medial ankle mortise likely remote avulsion fracture is seen in the adjacent talus. 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 Obesity 4. Active smoker: counselled to quit smoking Recommendations: - Start IV Vanc per pharmacy assisted dosing - Change IV Zosyn to IV Ceftriaxone 2 gm q24 - pt counselled to elevate her right leg and foot to help reduce swelling - Pt might need slight touch of diuretics as CT shows mainly edema and less like soft tissue inflammation - will deescalate to PO options near discharge will follow Nav Llanes MD Infectious diseases
[2018-12-13] MEDS: HYDROcodone/APAP 5/325MG TABLET PO PRN ×4 (03:13→20:10)
[2018-12-13 05:34] LABS: Basophils # (Auto) 0 K/mcL (0.0-0.3); Basophils % (Auto) 0.3 % (0.0-2.0); Eosinophils # (Auto) 0.1 K/mcL (0.0-0.7); Eosinophils % (Auto) 1.2 % (0.0-7.0); Granulocytes % (Auto) 78.1 % (38.0-78.0); Hematocrit 30.7 % (36.0-48.0); Hemoglobin 10.2 g/dL (12.0-15.0); Lymphocytes # (Auto) 1.3 K/mcL (1.5-4.8); Lymphocytes % (Auto) 15.4 % (15.5-49.0); Mean Cell Volume 84.1 fL (80.0-100.0); Mean Corpuscular HGB Conc 33.2 g/dL (31.0-36.0); Mean Platelet Volume 7.9 fL (7.4-10.4); Monocytes # (Auto) 0.4 K/mcL (0.1-0.9); Platelet Count 141 K/mcL (140-440); RBC 3.65 M/mcL (4.00-5.20); WBC 8.2 K/mcL (4.5-11.0)
[2018-12-13 05:59] LABS: ALT/SGPT 16 U/l (0-40); AST/SGOT 15 U/l (0-37); Albumin 2.8 gm/dL (3.2-5.2); Albumin/Globulin Ratio 0.8 (1.0-2.3); Alkaline Phosphatase 78 U/L (39-117); Bilirubin,Direct < 0.2 mg/dL (0.0-0.3); Bilirubin,Total 0.3 mg/dL (0.0-1.0); Blood Urea Nitrogen 16 mg/dl (6-20); Calcium 8.2 mg/dl (8.6-10.4); Carbon Dioxide 20 mmol/L (22-30); Chloride 101 mmol/L (96-108); Globulin 3.6 gm/dL (2.2-3.7); Glomerular Filtration Rate 80; Glucose 175 mg/dL (70-105); Lactate Dehydrogenase 212 U/L (94-250); Magnesium 1.6 mg/dL (1.6-2.5); Potassium 3.4 mmol/L (3.3-5.1); Sodium 134 mmol/L (133-145); Triglycerides 139 mg/dl (<150); Uric Acid 3.2 mg/dL (2.5-8.0)
[2018-12-13] MEDS: OMEPRAZOLE 20 MG CAPSULE PO SCH (07:03)
[2018-12-13] MEDS: INSULIN LISPRO 1 UNIT/0.01 ML UNIT SQ SCH ×4 (07:04→20:29)
--- NOTE | 2018-12-13 07:35 | Internal Med Progress Note ---
Medical - PN: Subj Patient information: Note initiated : 12/13/18 at 7:34 am Service Date, if different from initiated Date: [] Patient: Joy Diaz 58 y/o F admitted on 12/11/18 for RLE Cellulitis, Right Great Toe Pain. Chief Complaint: [] Interval history: Ms. Diaz is a 58 year old F Who recently moved here from [place] to live with her daughter. Is a history of diabetes hypertension anxiety GERD, stage IV endometrial cancers status post chemoradiation. She has had an ulcer on the inside of her great toe on the right in the past about 6 years ago. She did notice that she developed an ulcer again on that medial aspect of the right great toe about 4 days ago. It was bleeding at that time. Becoming red swollen and tender. She went to the ED several days ago and was started on Augmentin. She saw Dr. garcia in the wound clinic today and is found that her redness and swelling and tenderness had increased. Thus, she was sent into the ED. In the ED she had a white blood cell count of 13. BUN and creatinine were mildly elevated, glucose was elevated procalcitonin CRP and ESR elevated. Blood pressure and other vital signs are stable. Patient failed outpatient therapy with antibiotics and thus admission requested. She reports occasional headache and chills she states she had shaking chills few days ago. Chest pain shortness of breath or GI complaints. 12/12 No overnight events. Slept okay. Leg does not feel quite as tender. No fevers or chills. No overnight events. Patient states leg internal grinder tender but less than originally. No other complaints Review of Systems: denies headache/fever/chills/nausea/vomiting/chest or abdominal pain/cough/dyspnea/diarrhea. Otherwise see above. - Constitutional Vitals: Vital Signs Temp Pulse Resp BP Pulse Ox 97.2 F 76 20 118/62 95 12/13/18 06:51 12/13/18 03:07 12/13/18 06:51 12/13/18 06:51 12/13/18 06:51 Period Temp Pulse Resp BP Sys/Wray Pulse Ox Last 24 Hr 96.4 F-98 F 70-82 16-24 94-120/51-69 91-99 Intake and Output 07/10/19 07/11/19 07/11/19 21:59 05:59 13:59 Intake Total 850 1780 240 Output Total 1925 500 Balance -1075 1280 240 Weight 127.822 kg Intake & Output: Intake & Output 12/12/18 12/13/18 12/13/18 21:59 05:59 13:59 Intake Total 850 1780 240 Output Total 1925 500 Balance -1075 1280 240 Weight 127.822 kg Intake: IV 50 500 Vancomycin 1,500 mg In Sodium 500 Chloride 0.9% 500 ml @ 333.3 mls/hr IV Q12H [facility] Rx#: [id number] Rocephin 2 gm In Dextrose 5% in 50 Water 50 ml @ 100 mls/hr IV Q24H [facility] Rx#:[id number] Oral 800 1280 240 Output: Void Amount 1924 500 Other: Meal Dinner peaches and cottage cheese Percent of Meal Consumed 50% 50% Feeding Ability Independent Independent Urine Appearance Clear Cloudy Urine Color Bright Yellow Bright Yellow Urine Odor Normal Exam: General: Alert, Awake, No acute Distress, obese Eyes/N/T: EOMI, Head/Neck: neck supple, CV: RRR, 2/6 SM Pulm: Clear b/l, no wheezing/rhonchi/rales Abd: soft, nontender, +BS x4 Ext: no clubbing/cyanosis. Right great toe with small ulcer medial aspect. She has swelling/erythema/tenderness from the foot to below the knee -improving. Neuro: Alert, moves all extremities, sensation is decreased lower extremities chronic from neuropathy Skin: warm/dry Medical - PN: Obj Da - Labs CBC & Chem 7: 12/13/18 04:07 12/13/18 04:07 Labs: Abnormal Lab Results 12/13/18 12/13/18 12/12/18 04:07 04:07 14:47 WBC RBC 3.65 L Hgb 10.2 L Hct 30.7 L RDW 17.0 H Plt Count Gran % 78.1 H Lymph % (Auto) 15.4 L Gran # Lymph # (Auto) 1.3 L ESR Sodium 128 L Potassium 3.2 L Chloride 94 L Carbon Dioxide 20 L 19 L Anion Gap BUN Creatinine Glucose 175 H 258 H Hemoglobin A1c Calcium 8.2 L 8.4 L Magnesium C-Reactive Protein Total Protein Albumin 2.8 L Globulin Albumin/Globulin Ratio 0.8 L 12/12/18 12/12/18 12/11/18 04:12 04:12 10:19 WBC RBC 3.90 L Hgb 10.9 L Hct 32.7 L RDW 17.4 H Plt Count 132 L Gran % 80.4 H Lymph % (Auto) 12.9 L Gran # 8.6 H Lymph # (Auto) 1.4 L ESR 102 H Sodium 127 L Potassium Chloride 95 L Carbon Dioxide 20 L Anion Gap BUN 21 H Creatinine Glucose 156 H Hemoglobin A1c 8.1 H Calcium 8.1 L Magnesium 1.3 L C-Reactive Protein 16.4 H Total Protein Albumin 2.7 L Globulin Albumin/Globulin Ratio 0.7 L 12/11/18 12/11/18 10:19 10:19 WBC 13.3 H RBC Hgb Hct RDW 17.6 H Plt Count Gran % 83.8 H Lymph % (Auto) 11.7 L Gran # 11.1 H Lymph # (Auto) ESR 99 H Sodium 129 L Potassium Chloride 88 L Carbon Dioxide Anion Gap 18.0 H BUN 22 H Creatinine 1.2 H Glucose 230 H Hemoglobin A1c Calcium Magnesium C-Reactive Protein 28.7 H Total Protein 8.5 H Albumin Globulin 4.7 H Albumin/Globulin Ratio 0.8 L Meds: Medications Hydrocodone Bitart/Acetaminophen ([place] 5/325mg) 1 tab PO Q4HP PRN PRN Reason: PAIN LEVEL 3-6 Last Admin: 12/13/18 03:13 Dose: 1 tab Documented by: Albuterol Sulfate (Ventolin) 2.5 mg NEB Q2HP PRN PRN Reason: Shortness Of Breath Aspirin (Aspirin) 81 mg PO DAILY [facility] Last Admin: 12/12/18 08:47 Dose: 81 mg Documented by: Diagnostic Test (Pha) (Accu-Chek) 1 each FS ACHS [facility] Last Admin: 12/13/18 06:57 Dose: 1 each Documented by: Enoxaparin Sodium (Lovenox) 40 mg SQ DAILY [facility] Last Admin: 12/12/18 08:47 Dose: 40 mg Documented by: Famotidine (Pepcid) 20 mg PO HS [facility] Last Admin: 12/12/18 21:29 Dose: 20 mg Documented by: Fluticasone Propionate (Flovent Hfa 110mcg) 1 puff INH BIDP PRN PRN Reason: Shortness Of Breath Heparin Sodium (Porcine) (Heparin Flush) 5 ml IV Q12 [facility] Last Admin: 12/12/18 21:30 Dose: 5 ml Documented by: Ceftriaxone Sodium 2 gm/ (Dextrose) 50 mls @ 100 mls/hr IV Q24H [facility]; Protocol Last Infusion: 12/12/18 15:00 Dose: Infused Documented by: Vancomycin HCl 1,500 mg/ (Sodium Chloride) 500 mls @ 333.3 mls/hr IV Q12H [facility] Last Infusion: 12/12/18 23:05 Dose: Infused Documented by: Insulin Glargine (Lantus) 35 unit SQ BID [facility] Last Admin: 12/12/18 21:31 Dose: 35 unit Documented by: Insulin Human Lispro (Humalog) 0 unit SQ ACHS [facility]; Protocol Last Admin: 12/13/18 07:04 Dose: 4 units Documented by: Labetalol HCl (Trandate) 0 mg IV Q2HP PRN PRN Reason: Hypertension Lorazepam (Ativan) 1 mg PO Q6HP PRN PRN Reason: Anxiety Last Admin: 12/12/18 19:51 Dose: 1 mg Documented by: Omeprazole (Prilosec) 20 mg PO QAMAC [facility] Last Admin: 12/13/18 07:03 Dose: 20 mg Documented by: Ondansetron HCl (Zofran) 4 mg IV Q6HP PRN PRN Reason: Nausea And Vomiting Anastrozole [ (Arimidex] 1 Mg Tab) 1 dose PO DAILY [facility] Last Admin: 12/12/18 11:27 Dose: 1 dose Documented by: Simvastatin (Zocor) 20 mg PO HS [facility] Last Admin: 12/12/18 21:29 Dose: 20 mg Documented by: Sodium Chloride (Saline Flush) 10 ml IV Q12 [facility] Last Admin: 12/12/18 21:31 Dose: Not Given Documented by: Valacyclovir HCl (Valtrex) 2,000 mg PO BID [facility]; Protocol Stop: 12/13/18 09:01 Last Admin: 12/12/18 21:31 Dose: 2,000 mg Documented by: Vancomycin HCl (Vancomycin Per Pharmacy) 1 order IV UD [facility]; Protocol Medical - PN: A/P - Time Spent With Patient Total time spent is greater than 50% in coordination of care (as documented) at patient's floor/unit and/or counseling patient: - Narrative A/P Narrative: A: *Right great toe ulcer with cellulitis extending up into the chase: -leukocytosis resolved -PCT improving -CT no abscess/osteo *Diabetes w/neuropathy: A1c 8.1 *LORE, mild: improved after IVF *Volume depletion: improved *Hyponatremia/ma/2 above. resolved *Obesity: *HTN/HLD: *GERD: *h/o Endometrial CA stage IV s/p chemo-radiation: * P: -ID following, cont Vanc/rocephin -Dr Gil following -BC pending, WC if able - -Continue home basal insulin and SSI -ppx: lovenox Medical - PN: Qual - VTE Deep Vein Thrombosis/Pulmonary Embolism Present on Admission: No
[2018-12-13] MEDS: INSULIN GLARGINE, HUMAN 1 UNIT/0.01 ML SQ SCH ×2 (08:45→20:28)
[2018-12-13] MEDS: ASPIRIN 81 MG TAB.CHEW PO SCH (08:45)
[2018-12-13] MEDS: cefTRIAXone 2 GM in DEXTROSE 5% IN WATER 50 ML IV SCH (08:45)
[2018-12-13] MEDS: Anastrozole [Arimidex] 1 mg Tab PO SCH (08:46)
[2018-12-13] MEDS: ENOXAPARIN 40 MG/0.4 ML SYRINGE SQ SCH (08:46)
[2018-12-13] MEDS: valACYclovir 500 MG TABLET PO SCH (08:46)
[2018-12-13] MEDS: 0.9 % SODIUM CHLORIDE 10 ML SYRINGE IV SCH (08:48)
[2018-12-13] MEDS ORDERED: FUROSEMIDE 20 MG/2 ML VIAL IV ONE (10:03)
[2018-12-13] MEDS ORDERED: ALBUMIN HUMAN 12.5 GM/50 ML BAG IV ONE (10:03)
[2018-12-13] MEDS: VANCOMYCIN 1,500 MG in 0.9 % SODIUM CHLORIDE 500 ML IV SCH ×2 (10:06→23:08)
--- NOTE | 2018-12-13 11:27 | Discharge Summary ---
Medical - DS: Prov Patient information: Note initiated : 12/13/18 at 11:25 am Service Date, if different from initiated Date: [] Patient: Joy Diaz 58 y/o F admitted on 12/11/18 for RLE Cellulitis, Right Great Toe Pain. Chief Complaint: [] Date of admission: 12/11/18 13:12 Discharge date: 12/14/18 Primary care physician: PCP No Consults: 12/11/18 Consult to Physician [CONS] Stat Comment: Consulting Provider: Frank Alexis Reason For Exam: Physician to Consult 12/11/18 12:21 Consult to Physician [CONS] Routine Comment: Consulting Provider: John Gil Reason For Exam: Physician to Consult 12/11/18 18:51 Consult to Infectious Disease [CONS] Routine Comment: Consulting Provider: Nav Llanes Reason For Exam: Antibiotic Recommendations ID Consult Information: Patient with h/o IDDM, smoking and peripheral neuropathy. Failed out patient treatment for infected ulcer of great toe. Consult date: 12/12/18 Reason for Consult: Routine consult Consult to Physician [CONS] Routine Comment: Recommendations about treatment. Consulting Provider: Nav Llanes Reason For Exam: Cellulitis Right LE. Diabetes and h/o RT Ca Cervix Medical - DS: Meds - Discharge Medications Prescriptions: Cephalexin [Keflex] 500 mg PO QID #18 cap Furosemide [Lasix] 20 mg PO DAILY #30 tablet Sulfamethoxazole/Trimethoprim [Bactrim Ds] 1 tab PO BID #9 tab Active and Home Medications: Home Medications Amoxicillin/Potassium Clav [Augmentin] 875 mg PO Q12H 10 Days #20 tab 12/09/18 [Rx Confirmed 12/11/18 Last Taken 12/11/18] Hydrochlorothiazide 25 mg QAM 12/09/18 [History Confirmed 12/11/18 Last Taken 12/11/18] Insulin Glargine, Human [Lantus] 35 units SC BID 12/09/18 [History Confirmed 02/21 Last Taken 12/11/18] LORazepam [Ativan] 1 mg PO HSP PRN 12/09/18 [History Confirmed 12/11/18 Last Taken 12/04/18] Lisinopril [Zestril] 10 mg PO DAILY 12/09/18 [History Confirmed 12/11/18 Last Ta jackeline 12/11/18] Lovastatin 40 mg PO HS 12/09/18 [History Confirmed 12/11/18 Last Taken 12/10/18] Naproxen [Naprosyn] 500 mg PO BIDP PRN 12/09/18 [History Confirmed 12/11/18 Last Taken 12/07/18] Omeprazole [PriLOSEC] 20 mg PO DAILY 12/09/18 [History Confirmed 12/11/18 Last Taken 12/11/18] glipiZIDE [Glucotrol] 10 mg PO BID 12/09/18 [History Confirmed 12/11/18 Last Taken 12/11/18] metFORMIN HCL [Metformin HCl] 1,000 mg PO BID 12/09/18 [History Confirmed 12/11/18 Last Taken 12/11/18] Ammonium Lactate 1 applic TOPICAL DAILY 12/11/18 [History Confirmed 12/11/18 Last Taken 12/11/18] Anastrozole [Arimidex] 1 mg PO DAILY 12/11/18 [History Confirmed 12/11/18 Last Taken 12/11/18] Aspirin [Man Chewable Aspirin] 81 mg PO DAILY 12/11/18 [History Confirmed 12/11/18 Last Taken 12/11/18] Fish Oil 1 tab PO BID 12/11/18 [History Confirmed 12/11/18 Last Taken Unknown] Fluticasone Hfa 110Mcg [Flovent Hfa 110Mcg] 1 puff INH BIDP PRN 12/11/18 [History Confirmed 12/11/18 Last Taken 12/04/18] Ranitidine HCl [Acid Centerless Grinder Operator] 1 tab PO HS 12/11/18 [History Confirmed 12/11/18 Last Taken 12/10/18] Home Medications Insulin Glargine, Human [Lantus] 35 units SC BID 12/09/18 [History Confirmed 12/11/18 Last Taken 12/11/18] LORazepam [Ativan] 1 mg PO HSP PRN 12/09/18 [History Confirmed 12/11/18 Last Taken 12/04/18] Lisinopril [Zestril] 10 mg PO DAILY 12/09/18 [History Confirmed 12/11/18 Last Taken 12/11/18] Lovastatin 40 mg PO HS 12/09/18 [History Confirmed 12/11/18 Last Taken 12/10/18] Omeprazole [Prilosec] 20 mg PO DAILY 12/09/18 [History Confirmed 12/11/18 Last Taken 12/11/18] glipiZIDE [Glucotrol] 10 mg PO BID 12/09/18 [History Confirmed 12/11/18 Last Taken 12/11/18] metFORMIN HCL [Metformin HCl] 1,000 mg PO BID 12/09/18 [History Confirmed 12/11/18 Last Taken 12/11/18] Ammonium Lactate 1 applic TOPICAL DAILY 12/11/18 [History Confirmed 12/11/18 Last Taken 12/11/18] Anastrozole [Arimidex] 1 mg PO DAILY 12/11/18 [History Confirmed 12/11/18 Last Taken 12/11/18] Aspirin [Man Chewable Aspirin] 81 mg PO DAILY 12/11/18 [History Confirmed 12/11/18 Last Taken 12/11/18] Fish Oil 1 tab PO BID 12/11/18 [History Confirmed 12/11/18 Last Taken Unknown] Fluticasone Hfa 110Mcg [Flovent Hfa 110Mcg] 1 puff INH BIDP PRN 12/11/18 [History Confirmed 12/11/18 Last Taken 12/04/18] Ranitidine HCl [Acid Centerless Grinder Operator] 1 tab PO HS 12/11/18 [History Confirmed 12/11/18 Last Taken 12/10/18] Cephalexin [Keflex] 500 mg PO QID #18 cap 12/13/18 [Rx Last Taken Unknown] Sulfamethoxazole/Trimethoprim [Bactrim Ds] 1 tab PO BID #9 tab 12/13/18 [Rx Last Taken Unknown] Furosemide [Lasix] 20 mg PO DAILY #30 tablet 12/14/18 [Rx Last Taken Unknown] Medical - DS: Hosp Hospital course: Mr. Diaz is a 58 year old F Ms. Diaz is a 58 year old F Who recently moved here from [place] to live with her daughter. Is a history of diabetes hypertension anxiety GERD, stage IV endometrial cancers status post chemoradiation. She has had an ulcer on the inside of her great toe on the right in the past about 6 years ago. She did notice that she developed an ulcer again on that medial aspect of the right great toe about 4 days ago. It was bleeding at that time. Becoming red swollen and tender. She went to the ED several days ago and was started on Augmentin. She saw Dr. garcia in the wound clinic today and is found that her redness and swelling and tenderness had increased. Thus, she was sent into the ED. In the ED she had a white blood cell count of 13. BUN and creatinine were mildly elevated, glucose was elevated procalcitonin CRP and ESR elevated. Blood pressure and other vital signs are stable. Patient failed outpatient therapy with antibiotics and thus admission requested. She reports occasional headache and chills she states she had shaking chills few days ago. Chest pain shortness of breath or GI complaints. 12/12 No overnight events. Slept okay. Leg does not feel quite as tender. No fevers or chills. No overnight events. Patient states leg tea bag machine tender but less than originally. No other complaints 12/13 Leg redness and tenderness continue to slowly improve. No other new complaints. Seen by infectious disease today. 12/14 Overnight events and patient doing well and stable for discharge. Will change her hydrochlorothiazide to furosemide given her hyponatremia. Discharge diagnosis: Right lower extremity cellulitis diabetes acute kidney injury volume deplet Secondary discharge diagnosis: Hyponatremia hypomagnesemia obesity hypertension GERD - Time Spent with Patient Total time spent providing and/or coordinating discharge services: Greater than 30 minutes Medical - DS: Exam - Constitutional Vitals: Vital Signs Temp Pulse Resp BP Pulse Ox 12/13/18 11:14 97.8 F 20 120/64 94 12/13/18 08:00 76 20 95 12/13/18 06:51 97.2 F 20 118/62 95 12/13/18 03:07 97.8 F 76 20 118/56 94 12/12/18 23:27 98 F 75 18 120/69 94 12/12/18 20:00 97.7 F 70 20 104/51 91 12/12/18 16:00 96.4 F L 74 22 117/58 99 12/12/18 12:30 97.9 F 82 24 H 107/58 95 Intake and Output 12/12/18 12/13/18 12/13/18 21:59 05:59 13:59 Intake Total 850 1780 690 Output Total 5754 541 8537 Balance -1075 1280 -510 Intake: IV 50 500 Vancomycin 1,500 mg In Sodium 500 Chloride 0.9% 500 ml @ 333.3 mls/hr IV Q12H [facility] Rx#: [id number] Rocephin 2 gm In Dextrose 5% in 50 Water 50 ml @ 100 mls/hr IV Q24H [facility] Rx#:[id number] Oral 800 1280 690 Output: Void Amount 9852 [id number] [id number] Other: Meal Dinner peaches and cottage cheese Breakfast Percent of Meal Consumed 50% 50% 100% Feeding Ability Independent Independent Independent Urine Appearance Clear Cloudy Clear Urine Color Bright Yellow Bright Yellow Bright Yellow Urine Odor Normal Normal Weight 127.822 kg Medical - DS: Data Labs on day of discharge: Labs from last 24 hours 12/13/18 12/13/18 12/12/18 04:07 04:07 14:47 WBC 8.2 RBC 3.65 L Hgb 10.2 L Hct 30.7 L MCV 84.1 MCH 28.0 MCHC 33.2 RDW 17.0 H Plt Count 141 MPV 7.9 Gran % 78.1 H Lymph % (Auto) 15.4 L [place] % (Auto) 5.0 Eos % (Auto) 1.2 Baso % (Auto) 0.3 Gran # 6.4 Lymph # (Auto) 1.3 L [place] # (Auto) 0.4 Eos # (Auto) 0.1 Baso # (Auto) 0 Sodium 134 128 L Potassium 3.4 3.2 L Chloride 101 94 L Carbon Dioxide 20 L 19 L Anion Gap 13.0 15.0 BUN 16 17 Creatinine 0.8 1.0 GFR Calculation 80 61 Glucose 175 H 258 H Uric Acid 3.2 Calcium 8.2 L 8.4 L Phosphorus 3.0 Magnesium 1.6 Total Bilirubin 0.3 Direct Bilirubin < 0.2 GGT 24 AST 15 ALT 16 Alkaline Phosphatase 78 Lactate Dehydrogenase 212 Total Protein 6.4 Albumin 2.8 L Globulin 3.6 Albumin/Globulin Ratio 0.8 L Triglycerides 139 Preliminary micro results at discharge 12/11/18 10:39 Blood Culture - Preliminary Blood 12/11/18 10:19 Blood Culture - Preliminary Blood 12/11/18 14:30 Wound Culture - Preliminary Foot - Right Medical - DS: A/P - Patient/Caregiver Discharge Instructions Activity: increase activity as tolerated Diet: Consistent Carbohydrate Prescriptions: Cephalexin [Keflex] 500 mg PO QID #18 cap Sulfamethoxazole/Trimethoprim [Bactrim Ds] 1 tab PO BID #9 tab - Follow up Plan Follow up with: No,PCP [Primary Care Provider] - John Gil MD [Physician] - Disposition: Home, Self-Care Prognosis: Fair Rehab Potential: Fair Overall status at discharge: patient is progressing back to baseline Medical - DS: Qual - VTE Deep Vein Thrombosis/Pulmonary Embolism Present on Admission: No
--- NOTE | 2018-12-13 17:51 | Infectious Disease Prog Note ---
Subjective Patient information: Note initiated : 12/13/18 at 5:31 pm Service Date, if different from initiated Date: [] Patient: Joy Diaz 58 y/o F admitted on 12/11/18 for RLE Cellulitis, Right Great Toe Pain. Chief Complaint: [] Interval history: Pt feels better overall. Mentions that her swelling is coming down. Denied any fever, n/v, diarrhea. Endorsed occasional chills. Objective Objective Narrative: ao x3, in nad no thrush right leg and foot are still swollen although the swelling has decreased. Evident by wrinkles on the surface of skin. No blisters, drainage. Redness receding from right thigh down. - Vital Signs Vital signs: Vital Signs Temp Pulse Resp BP Pulse Ox 12/13/18 16:00 36.4 C 24 H 134/62 93 12/13/18 11:14 36.6 C 20 120/64 94 12/13/18 08:00 76 20 95 12/13/18 06:51 36.2 C 20 118/62 95 12/13/18 03:07 36.6 C 76 20 118/56 94 12/12/18 23:27 36.6 C 75 18 120/69 94 12/12/18 20:00 36.5 C 70 20 104/51 91 Intake and Output 12/13/18 12/13/18 12/13/18 05:59 13:59 21:59 Intake Total 6225 447 1855 Output Total 500 2000 850 Balance 1280 -1310 3800 Intake: IV 500 3850 Vancomycin 1,500 mg In Sodium 500 500 Chloride 0.9% 500 ml @ 333.3 mls/hr IV Q12H [facility] Rx#: [id number] Rocephin 2 gm In Dextrose 5% in 50 Water 50 ml @ 100 mls/hr IV Q24H [facility] Rx#:[id number] Oral 1280 690 800 Output: Void Amount 500 1999 850 Other: Meal peaches and cottage cheese Breakfast Lunch Percent of Meal Consumed 50% 100% 100% Feeding Ability Independent Independent Independent Urine Appearance Cloudy Clear Clear Urine Color Bright Yellow Bright Yellow Pale Urine Odor Normal Normal Stool Size Moderate Stool Color Brown Stool Consistency Soft Formed Intake & Output: Intake & Output 12/13/18 12/13/18 12/13/18 05:59 13:59 21:59 Intake Total 0991 592 7436 Output Total 500 2000 850 Balance 1280 -1310 3800 Intake: IV 500 3850 Vancomycin 1,500 mg In Sodium 500 500 Chloride 0.9% 500 ml @ 333.3 mls/hr IV Q12H [facility] Rx#: [id number] Rocephin 2 gm In Dextrose 5% in 50 Water 50 ml @ 100 mls/hr IV Q24H [facility] Rx#:[id number] Oral 1280 690 800 Output: Void Amount 500 2000 850 Other: Meal peaches and cottage cheese Breakfast Lunch Percent of Meal Consumed 50% 100% 100% Feeding Ability Independent Independent Independent Urine Appearance Cloudy Clear Clear Urine Color Bright Yellow Bright Yellow Pale Urine Odor Normal Normal Stool Size Moderate Stool Color Brown Stool Consistency Soft Formed - Lab 12/13/18 04:07 12/14/18 04:08 Most recent lab results Calcium 8.2 mg/dl (8.6-10.4) L 12/13/18 04:07 Phosphorus 3.0 mg/dL (2.7-4.5) 12/13/18 04:07 Magnesium 1.6 mg/dL (1.6-2.5) 12/13/18 04:07 Microbiology 12/11/18 14:30 Foot - Right Gram Stain - Final 12/11/18 14:30 Foot - Right Wound Culture - Final 12/11/18 10:39 Blood Blood Culture - Preliminary 12/11/18 10:19 Blood Blood Culture - Preliminary 12/11/18 14:30 Nose MRSA (PCR) - Final 12/11/18 14:30 Nasopharynx MRSA Screen - Final Medications Active Medications: Hydrocodone Bitart/Acetaminophen ([place] 5/325mg) 1 tab PO Q4HP PRN PRN Reason: PAIN LEVEL 3-6 Last Admin: 12/13/18 14:36 Dose: 1 tab Documented by: Admin: 12/13/18 08:44 Dose: 1 tab Documented by: Admin: 12/13/18 03:13 Dose: 1 tab Documented by: Admin: 12/12/18 21:29 Dose: 1 tab Documented by: Admin: 12/12/18 17:32 Dose: 1 tab Documented by: [email or web address] Admin: 12/12/18 11:28 Dose: 1 tab Documented by: [email or web address] Admin: 12/11/18 23:43 Dose: 1 tab Documented by: Admin: 12/11/18 19:37 Dose: 1 tab Documented by: Admin: 12/11/18 14:57 Dose: 1 tab Documented by: [facility] Albuterol Sulfate (Ventolin) 2.5 mg NEB Q2HP PRN PRN Reason: Shortness Of Breath Aspirin (Aspirin) 81 mg PO DAILY [facility] Last Admin: 12/13/18 08:45 Dose: 81 mg Documented by: Admin: 12/12/18 08:47 Dose: 81 mg Documented by: [facility] Diagnostic Test (Pha) (Accu-Chek) 1 each FS ACHS [facility] Last Admin: 12/13/18 16:53 Dose: 1 each Documented by: Admin: 12/13/18 11:32 Dose: 1 each Documented by: Admin: 12/13/18 06:57 Dose: 1 each Documented by: Admin: 12/12/18 21:30 Dose: 1 each Documented by: Admin: 12/12/18 16:58 Dose: 1 each Documented by: Curtis Admin: 12/12/18 11:18 Dose: 1 each Documented by: [facility] Admin: 12/12/18 07:32 Dose: 1 each Documented by: [facility] Admin: 12/11/18 20:18 Dose: 1 each Documented by: Admin: 12/11/18 17:14 Dose: 1 each Documented by: [email or web address] Enoxaparin Sodium (Lovenox) 40 mg SQ DAILY [facility] Last Admin: 12/13/18 08:46 Dose: 40 mg Documented by: Admin: 12/12/18 08:47 Dose: 40 mg Documented by: [facility] Famotidine (Pepcid) 20 mg PO HS [facility] Last Admin: 12/12/18 21:29 Dose: 20 mg Documented by: Admin: 12/11/18 20:19 Dose: 20 mg Documented by: STACY Fluticasone Propionate (Flovent Hfa 110mcg) 1 puff INH BIDP PRN PRN Reason: Shortness Of Breath Heparin Sodium (Porcine) (Heparin Flush) 5 ml IV Q12 [facility] Last Admin: 12/13/18 08:46 Dose: 5 ml Documented by: Admin: 12/12/18 21:30 Dose: 5 ml Documented by: ELIGIO Ceftriaxone Sodium 2 gm/ (Dextrose) 50 mls @ 100 mls/hr IV Q24H [facility]; Protocol Last Infusion: 12/13/18 14:29 Dose: 100 mls/hr Documented by: Admin: 12/13/18 08:45 Dose: 100 mls/hr Documented by: Infusion: 12/12/18 15:00 Dose: 0 mls/hr Documented by: Admin: 12/12/18 13:57 Dose: 100 mls/hr Documented by: ONEL Vancomycin HCl 1,500 mg/ (Sodium Chloride) 500 mls @ 333.3 mls/hr IV Q12H [facility] Last Infusion: 12/13/18 14:28 Dose: 333 mls/hr Documented by: Admin: 12/13/18 10:06 Dose: 333 mls/hr Documented by: Infusion: 12/12/18 23:05 Dose: 0 mls/hr Documented by: Admin: 12/12/18 21:32 Dose: 333.3 mls/hr Documented by: ELIGIO Insulin Glargine (Lantus) 35 unit SQ BID [facility] Last Admin: 12/13/18 08:45 Dose: 35 unit Documented by: Admin: 12/12/18 21:31 Dose: 35 unit Documented by: Admin: 12/12/18 08:48 Dose: 35 unit Documented by: Admin: 12/11/18 20:18 Dose: 35 unit Documented by: STACY Insulin Human Lispro (Humalog) 0 unit SQ ACHS [facility]; Protocol Last Admin: 12/13/18 16:58 Dose: 6 units Documented by: Admin: 12/13/18 11:38 Dose: 8 units Documented by: Admin: 12/13/18 07:04 Dose: 4 units Documented by: Admin: 12/12/18 21:30 Dose: 6 units Documented by: Admin: 12/12/18 17:02 Dose: 8 units Documented by: Admin: 12/12/18 11:28 Dose: 4 units Documented by: [email or web address] Admin: 12/12/18 07:42 Dose: 2 units Documented by: [email or web address] Admin: 12/11/18 20:19 Dose: Not Given Documented by: STACY Non-Admin Reason: No Coverage Needed Admin: 12/11/18 17:23 Dose: 4 units Documented by: [facility] Labetalol HCl (Trandate) 0 mg IV Q2HP PRN PRN Reason: Hypertension Lorazepam (Ativan) 1 mg PO Q6HP PRN PRN Reason: Anxiety Last Admin: 12/12/18 19:51 Dose: 1 mg Documented by: STACY [facility] Admin: 12/13/18 07:03 Dose: 20 mg Documented by: Admin: 12/12/18 07:32 Dose: 20 mg Documented by: [facility] Ondansetron HCl (Zofran) 4 mg IV Q6HP PRN PRN Reason: Nausea And Vomiting Anastrozole [ (Arimidex] 1 Mg Tab) 1 dose PO DAILY [facility] Last Admin: 12/13/18 08:46 Dose: 1 dose Documented by: Admin: 12/12/18 11:27 Dose: 1 dose Documented by: ONEL Simvastatin (Zocor) 20 mg PO HS [facility] Last Admin: 12/12/18 21:29 Dose: 20 mg Documented by: Admin: 12/11/18 20:19 Dose: 20 mg Documented by: STACY Sodium Chloride (Saline Flush) 10 ml IV Q12 [facility] Last Admin: 12/13/18 08:48 Dose: Not Given Documented by: JANE Non-Admin Reason: Bag Still Infusing Admin: 12/12/18 21:31 Dose: Not Given Documented by: ELIGIO Non-Admin Reason: Bag Still Infusing Vancomycin HCl (Vancomycin Per Pharmacy) 1 order IV UD [facility]; Protocol Assessment and Plan - Narrative A/P Narrative: A: 1. Complicated skin and soft tissue infection of right lower extremity (inv foot, leg, thigh): slowly improving - most common etiology for such infections is gram-positives. In absence of cultures and a strong clinical response so far; will expand coverage with addition of Vanc - no sepsis: QSOFA score 0 - CT right LE s/o Marked edema or, less likely, cellulitis throughout the calf, ankle and foot. There are no discrete fluid collections. No evidence of myositis, fasciitis or osteomyelitis. 5 mm loose body in medial ankle mortise likely remote avulsion fracture is seen in the adjacent talus. 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 Obesity 4. Active smoker: counselled to quit smoking Recommendations: - Continue IV Vanc per pharmacy assisted dosing - Stop IV Ceftriaxone - pt counselled to elevate her right leg and foot to help reduce swelling - agree with ongoing diuretic therapy as CT shows mainly edema and less like soft tissue inflammation - will deescalate to PO Bactrim DS [800/160 mg] 1 tab bid and PO Cephalexin 500 mg qid for 5 days (stop date 12/18/18) will follow Nav Llanes MD Infectious diseases
[2018-12-13] MEDS: LORazepam 1 MG TABLET PO PRN (19:15)
[2018-12-13] MEDS: FAMOTIDINE 20 MG TABLET PO SCH (20:16)
[2018-12-13] MEDS: SIMVASTATIN 20 MG TABLET PO SCH (20:16)
[2018-12-14] MEDS: 0.9 % SODIUM CHLORIDE 10 ML SYRINGE IV SCH ×2 (00:57→09:14)
[2018-12-14] MEDS: HYDROcodone/APAP 5/325MG TABLET PO PRN (03:59)
[2018-12-14 05:56] LABS: Blood Urea Nitrogen 10 mg/dl (6-20); Calcium 8.4 mg/dl (8.6-10.4); Carbon Dioxide 23 mmol/L (22-30); Chloride 102 mmol/L (96-108); Glomerular Filtration Rate 99; Glucose 109 mg/dL (70-105); Potassium 3.6 mmol/L (3.3-5.1); Sodium 137 mmol/L (133-145)
[2018-12-14] MEDS: OMEPRAZOLE 20 MG CAPSULE PO SCH (07:12)
[2018-12-14] MEDS: INSULIN LISPRO 1 UNIT/0.01 ML UNIT SQ SCH (07:12)
[2018-12-14] MEDS: ASPIRIN 81 MG TAB.CHEW PO SCH (09:13)
[2018-12-14] MEDS: INSULIN GLARGINE, HUMAN 1 UNIT/0.01 ML SQ SCH (09:14)
[2018-12-14] MEDS: ENOXAPARIN 40 MG/0.4 ML SYRINGE SQ SCH (09:14)
[2018-12-14] MEDS: Anastrozole [Arimidex] 1 mg Tab PO SCH (09:14)
[2018-12-14] MEDS ORDERED: HEPARIN SODIUM,PORCINE/PF 500 UNIT/5 ML SYRINGE IV ONE (09:48)
--- NOTE | 2018-12-14 09:54 | Infectious Disease Prog Note ---
Subjective Patient information: Note initiated : 12/14/18 at 9:52 am Service Date, if different from initiated Date: [] Patient: Joy Diaz 58 y/o F admitted on 12/11/18 for RLE Cellulitis, Right Great Toe Pain. Chief Complaint: [] Interval history: Pt reported feeling much better. Denied any fever, chills, n/v, diarrhea. Endorsed some pain in right leg and thigh, but better than yesterday. Discussed PO antibiotics and plan for ID clinic f/u. Objective Objective Narrative: ao x 3, in nad right lower extremity swelling in thigh, leg and foot going down. Redness mainly in leg with pitting edema. No drainage. Wrinkling of skin in foot and leg suggests receding edema. No warmth compared to other leg. Pt able to bear weight and walk without pain. The callus over a small non healing ulcer over right foot doesnot seem to be infected. peripheral pulses palpable and have biphasic flow on portable doppler. RASHMI: 100 mm (ankle)/110 (brachial) = 0.91 - Vital Signs Vital signs: Vital Signs Temp Pulse Resp BP Pulse Ox 12/14/18 06:47 36.2 C 67 18 114/68 94 12/14/18 04:07 37.1 C 74 16 123/61 93 12/13/18 23:35 36.5 C 75 18 113/61 94 12/13/18 20:11 128/62 12/13/18 19:31 36.9 C 74 18 115/57 100 12/13/18 16:00 36.4 C 24 H 134/62 93 12/13/18 11:14 36.6 C 20 120/64 94 Intake and Output 12/13/18 12/14/18 12/14/18 21:59 05:59 13:59 Intake Total 4650 300 360 Output Total 1500 1400 800 Balance 3150 -1100 -440 Intake: IV 3850 Vancomycin 1,500 mg In Sodium 500 Chloride 0.9% 500 ml @ 333.3 mls/hr IV Q12H [facility] Rx#: [id number] Rocephin 2 gm In Dextrose 5% in 50 Water 50 ml @ 100 mls/hr IV Q24H [facility] Rx#:[id number] Oral 800 300 360 Output: Void Amount 1500 1400 800 Other: Meal Lunch Percent of Meal Consumed 100% 100% Feeding Ability Independent Independent Urine Appearance Clear Clear Urine Color Pale Bright Yellow Urine Odor Normal Normal Stool Size Moderate Stool Color Brown Stool Consistency Soft Formed Weight 129.546 kg Intake & Output: Intake & Output 12/13/18 12/14/18 12/14/18 21:59 05:59 13:59 Intake Total 4650 300 360 Output Total 1500 1400 800 Balance 3150 -1100 -440 Weight 129.546 kg Intake: IV 3850 Vancomycin 1,500 mg In Sodium 500 Chloride 0.9% 500 ml @ 333.3 mls/hr IV Q12H [facility] Rx#: [id number] Rocephin 2 gm In Dextrose 5% in 50 Water 50 ml @ 100 mls/hr IV Q24H [facility] Rx#:[id number] Oral 800 300 360 Output: Void Amount 1500 1400 800 Other: Meal Lunch Percent of Meal Consumed 100% 100% Feeding Ability Independent Independent Urine Appearance Clear Clear Urine Color Pale Bright Yellow Urine Odor Normal Normal Stool Size Moderate Stool Color Brown Stool Consistency Soft Formed - Lab 12/13/18 04:07 12/14/18 04:08 Most recent lab results Calcium 8.4 mg/dl (8.6-10.4) L 12/14/18 04:08 Phosphorus 3.0 mg/dL (2.7-4.5) 12/13/18 04:07 Magnesium 1.6 mg/dL (1.6-2.5) 12/13/18 04:07 Microbiology 12/11/18 14:30 Foot - Right Gram Stain - Final 12/11/18 14:30 Foot - Right Wound Culture - Final 12/11/18 10:39 Blood Blood Culture - Preliminary 12/11/18 10:19 Blood Blood Culture - Preliminary 12/11/18 14:30 Nose MRSA (PCR) - Final 12/11/18 14:30 Nasopharynx MRSA Screen - Final Medications Active Medications: Hydrocodone Bitart/Acetaminophen ([place] 5/325mg) 1 tab PO Q4HP PRN PRN Reason: PAIN LEVEL 3-6 Last Admin: 12/14/18 03:59 Dose: 1 tab Documented by: Admin: 12/13/18 20:10 Dose: 1 tab Documented by: Admin: 12/13/18 14:36 Dose: 1 tab Documented by: Admin: 12/13/18 08:44 Dose: 1 tab Documented by: Admin: 12/13/18 03:13 Dose: 1 tab Documented by: Admin: 12/12/18 21:29 Dose: 1 tab Documented by: Admin: 12/12/18 17:32 Dose: 1 tab Documented by: Admin: 12/12/18 11:28 Dose: 1 tab Documented by: Admin: 12/11/18 23:43 Dose: 1 tab Documented by: Admin: 12/11/18 19:37 Dose: 1 tab Documented by: Admin: 12/11/18 14:57 Dose: 1 tab Documented by: [email or web address] Albuterol Sulfate (Ventolin) 2.5 mg NEB Q2HP PRN PRN Reason: Shortness Of Breath Aspirin (Aspirin) 81 mg PO DAILY [facility] Last Admin: 12/14/18 09:13 Dose: 81 mg Documented by: Admin: 12/13/18 08:45 Dose: 81 mg Documented by: Admin: 12/12/18 08:47 Dose: 81 mg Documented by: [facility] Cephalexin HCl (Keflex) 500 mg PO QID [facility]; Protocol Diagnostic Test (Pha) (Accu-Chek) 1 each FS ACHS [facility] Last Admin: 12/14/18 07:11 Dose: 1 each Documented by: Admin: 12/13/18 20:17 Dose: 1 each Documented by: Admin: 12/13/18 16:53 Dose: 1 each Documented by: Admin: 12/13/18 11:32 Dose: 1 each Documented by: Admin: 12/13/18 06:57 Dose: 1 each Documented by: Admin: 12/12/18 21:30 Dose: 1 each Documented by: Admin: 12/12/18 16:58 Dose: 1 each Documented by: Admin: 12/12/18 11:18 Dose: 1 each Documented by: [facility] Admin: 12/12/18 07:32 Dose: 1 each Documented by: [facility] Admin: 12/11/18 20:18 Dose: 1 each Documented by: Admin: 12/11/18 17:14 Dose: 1 each Documented by: ONEL Enoxaparin Sodium (Lovenox) 40 mg SQ DAILY [facility] Last Admin: 12/14/18 09:14 Dose: 40 mg Documented by: Admin: 12/13/18 08:46 Dose: 40 mg Documented by: Admin: 12/12/18 08:47 Dose: 40 mg Documented by: ONEL Famotidine (Pepcid) 20 mg PO HS [facility] Last Admin: 12/13/18 20:16 Dose: 20 mg Documented by: Admin: 12/12/18 21:29 Dose: 20 mg Documented by: Admin: 12/11/18 20:19 Dose: 20 mg Documented by: STACY Fluticasone Propionate (Flovent Hfa 110mcg) 1 puff INH BIDP PRN PRN Reason: Shortness Of Breath Heparin Sodium (Porcine) (Heparin Flush) 5 ml IV Q12 [facility] Last Admin: 12/14/18 09:14 Dose: 5 ml Documented by: Admin: 12/14/18 00:57 Dose: 5 ml Documented by: Admin: 12/13/18 08:46 Dose: 5 ml Documented by: Admin: 12/12/18 21:30 Dose: 5 ml Documented by: ELIGIO Insulin Glargine (Lantus) 35 unit SQ BID [facility] Last Admin: 12/14/18 09:14 Dose: 35 unit Documented by: Admin: 12/13/18 20:28 Dose: 35 unit Documented by: Admin: 12/13/18 08:45 Dose: 35 unit Documented by: Admin: 12/12/18 21:31 Dose: 35 unit Documented by: Admin: 12/12/18 08:48 Dose: 35 unit Documented by: [facility] Admin: 12/11/18 20:18 Dose: 35 unit Documented by: STACY Insulin Human Lispro (Humalog) 0 unit SQ ACHS [facility]; Protocol Last Admin: 12/14/18 07:12 Dose: Not Given Documented by: MARICARMEN Non-Admin Reason: No Coverage Needed Admin: 12/13/18 20:29 Dose: 8 units Documented by: Admin: 12/13/18 16:58 Dose: 6 units Documented by: Admin: 12/13/18 11:38 Dose: 8 units Documented by: Admin: 12/13/18 07:04 Dose: 4 units Documented by: Admin: 12/12/18 21:30 Dose: 6 units Documented by: Admin: 12/12/18 17:02 Dose: 8 units Documented by: Admin: 12/12/18 11:28 Dose: 4 units Documented by: Admin: 12/12/18 07:42 Dose: 2 units Documented by: Admin: 12/11/18 20:19 Dose: Not Given Documented by: STACY Non-Admin Reason: No Coverage Needed Admin: 12/11/18 17:23 Dose: 4 units Documented by: ONEL Labetalol HCl (Trandate) 0 mg IV Q2HP PRN PRN Reason: Hypertension Lorazepam (Ativan) 1 mg PO Q6HP PRN PRN Reason: Anxiety Last Admin: 12/13/18 19:15 Dose: 1 mg Documented by: Admin: 12/12/18 19:51 Dose: 1 mg Documented by: STACY [facility]ep[facility]il[facility]c) [facility] [address] [facility] Last Admin: 12/14/18 07:12 Dose: 20 mg Documented by: Admin: 12/13/18 07:03 Dose: 20 mg Documented by: Admin: 12/12/18 07:32 Dose: 20 mg Documented by: ONEL Ondansetron HCl (Zofran) 4 mg IV Q6HP PRN PRN Reason: Nausea And Vomiting Anastrozole [ (Arimidex] 1 Mg Tab) 1 dose PO DAILY [facility] Last Admin: 12/14/18 09:14 Dose: 1 dose Documented by: Admin: 12/13/18 08:46 Dose: 1 dose Documented by: Admin: 12/12/18 11:27 Dose: 1 dose Documented by: ONEL Simvastatin (Zocor) 20 mg PO HS [facility] Last Admin: 12/13/18 20:16 Dose: 20 mg Documented by: Admin: 12/12/18 21:29 Dose: 20 mg Documented by: Admin: 12/11/18 20:19 Dose: 20 mg Documented by: STACY Sodium Chloride (Saline Flush) 10 ml IV Q12 [facility] Last Admin: 12/14/18 09:14 Dose: 10 ml Documented by: Admin: 12/14/18 00:57 Dose: 10 ml Documented by: Admin: 12/13/18 08:48 Dose: Not Given Documented by: JANE Non-Admin Reason: Bag Still Infusing Admin: 12/12/18 21:31 Dose: Not Given Documented by: ELIGIO Non-Admin Reason: Bag Still Infusing Trimethoprim/Sulfamethoxazole (Bactrim Ds) 1 tab PO BID [facility]; Protocol Assessment and Plan - Narrative A/P Narrative: A: 1. Complicated skin and soft tissue infection of right lower extremity (inv foot, leg, thigh): much better - most common etiology for such infections is gram-positives. In absence of cultures and a strong clinical response so far; will expand coverage with addition of Vanc - no sepsis: QSOFA score 0 - CT right LE s/o Marked edema or, less likely, cellulitis throughout the calf, ankle and foot. There are no discrete fluid collections. No evidence of myos itis, fasciitis or osteomyelitis. 5 mm loose body in medial ankle mortise likely remote avulsion fracture is seen in the adjacent talus. 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 Obesity 4. Active smoker: counselled to quit smoking Recommendations: - Stop IV Vanc - Start PO Bactrim DS [800/160 mg] 1 tab bid and PO Cephalexin 500 mg qid for 5 days (stop date 12/18/18) - pt counselled to elevate her right leg and foot to help reduce swelling. Consider ALTHEA wraps to help with swelling as well - will see in ID clinic on 12/24 in am Nav Llanes MD Infectious diseases
[2018-12-14] MEDS ORDERED: CEPHALEXIN 500 MG CAPSULE PO SCH (13:00)
[2018-12-14] MEDS ORDERED: SULFAMETHOXAZOLE/TRIMETHOPRIM 1 TABLET PO SCH (21:00)
== END 2018-12-14 10:16 | disposition home or self-care (01) | DRG 603 ==
LOC: ED 10:01 → MEDSUR 13:00
PROVIDERS: ADMIT Internal Medicine; ATTEND Internal Medicine